=== PATIENT | male | born 1945 | race Caucasian/White ===

== ENCOUNTER 2022-01-02 02:36 | Inpatient (IN) | payer MEDICARE ==
[2022-01-02 03:00] LABS: Basophils % (A) 0 %; Eosinophils # (A) 0.1 k/uL (0-0.7); Eosinophils % (A) 1 %; HCT 33.1 % (39.0-53.0); HGB 11.9 gm/dL (13.0-17.5); Lymphocytes # (A) 0.6 k/uL (1.0-4.8); Lymphocytes % (A) 8 %; MCH 31.4 pg (25.0-35.0); MCHC 35.9 g/dL (31.0-37.0); MCV 87.3 fL (80.0-100.0); Mean Platelet Volume 7.1; Monocytes # (A) 0.4 k/uL (0-1.0); Monocytes % (A) 5 %; Neutrophils # (A) 5.6 k/uL (1.3-7.7); Neutrophils % (A) 83 %; Platelet Count 184 k/uL (150-450); RBC 3.79 m/uL (4.30-5.90); WBC 6.7 k/uL (3.8-10.6)
[2022-01-02] MEDS: SODIUM CHLORIDE 0.9% 1,000 ML IV SCH ×3 (03:01→18:45)
[2022-01-02 03:11] LABS: ALT 23 U/L (4-49); AST 37 U/L (17-59); African American GFR (CKD) >90 (>60 ml/min/1.73 sqM); Albumin 2.9 g/dL (3.5-5.0); Alkaline Phosphatase 104 U/L (38-126); Anion Gap 9 mmol/L; Blood Urea Nitrogen 6 mg/dL (9-20); Calcium 7.3 mg/dL (8.4-10.2); Carbon Dioxide 20 mmol/L (22-30); Chloride 78 mmol/L (98-107); Glucose 82 mg/dL (74-99); Non-African American GFR(CKD) >90 (>60 ml/min/1.73 sqM); Potassium 4.2 mmol/L (3.5-5.1); Total Bilirubin 0.5 mg/dL (0.2-1.3); Total Protein 5.4 g/dL (6.3-8.2)
[2022-01-02 03:17] LABS: Sodium 107 mmol/L (137-145)
[2022-01-02] MEDS ORDERED: NALOXONE 0.4 MG/ML 1 ML VIAL IV PRN (03:58)
--- NOTE | 2022-01-02 04:05 | ED ---
General Adult HPI - General Chief complaint: Recheck/Abnormal Lab/Rx Stated complaint: Abnormal Labs Time Seen by Provider: 01/02/22 02:38 Source: patient, EMS, RN notes reviewed, old records reviewed Mode of arrival: EMS - History of Present Illness Initial comments: 76-year-old male who had presented as a transfer from outside hospital. Patient was noted to be hyponatremic. 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 No seizure activity. No confusion. Patient was found to have a sodium of 106. He received 3% saline and had repeat sodium which was unchanged. He was sent to our hospital for higher level of care. No pain complaints. Additionally the patient had received a chest x-ray which was concerning for infiltrate and he received ceftriaxone and azithromycin. - Related Data Allergies Allergy/AdvReac Type Severity Reaction Status Date / Time No Known Allergies Allergy Verified 01/02/22 02:55 Review of Systems ROS Statement: Those systems with pertinent positive or pertinent negative responses have been documented in the HPI. ROS Other: All systems not noted in ROS Statement are negative. Past Medical History Past Medical History: Rheumatoid Arthritis (RA) History of Any Multi-Drug Resistant Organisms: None Reported Past Surgical History: No Surgical Hx Reported Past Psychological History: No Psychological Hx Reported Smoking Status: Never smoker Past Alcohol Use History: None Reported Past Drug Use History: None Reported General Exam General appearance: alert, in no apparent distress Head exam: Present: atraumatic, normocephalic Eye exam: Present: normal appearance, PERRL ENT exam: Present: normal exam Neck exam: Present: normal inspection. Absent: tenderness, meningismus Respiratory exam: Present: normal lung sounds bilaterally. Absent: respiratory distress, wheezes Cardiovascular Exam: Present: regular rate, normal rhythm GI/Abdominal exam: Present: soft. Absent: distended, tenderness, guarding Extremities exam: Present: normal inspection, normal capillary refill Neurological exam: Present: alert, oriented X3, CN II-XII intact. Absent: motor sensory deficit Psychiatric exam: Present: normal affect, normal mood Skin exam: Present: warm, dry, intact Course Vital Signs 01/02/22 01/02/22 02:48 04:05 Temperature 98.6 F Pulse Rate 83 85 Respiratory 18 18 Rate Blood Pressure 127/65 129/57 O2 Sat by Pulse 100 99 Oximetry EKG Findings - EKG Comments: EKG Findings:: EKG: Sinus rhythm, rate of 79, TX interval 175, QRS duration 87, QTC 395, no ST segment elevation, I reviewed and interpreted this EKG. Medical Decision Making - Medical Decision Making 76-year-old male with hyponatremia, repeat is 107. Patient continued on normal saline at 100 mL an hour. Additionally started on 3% at the recommendation of the pulmonary school speech therapist Dr. Perez. He will be admitted to the ICU, admitted to Dr. Jain who is aware. Nephrology placed on consult. - Lab Data Result diagrams: 01/02/22 02:54 01/02/22 02:54 Lab Results 01/02/22 01/02/22 Range/Units 02:54 02:54 WBC 6.7 (3.8-10.6) k/uL RBC 3.79 L (4.30-5.90) m/uL Hgb 11.9 L (13.0-17.5) gm/dL Hct 33.1 L (39.0-53.0) % MCV 87.3 (80.0-100.0) fL MCH 31.4 (25.0-35.0) pg MCHC 35.9 (31.0-37.0) g/dL RDW 13.0 (11.5-15.5) % Plt Count 184 (150-450) k/uL MPV 7.1 Neutrophils % 83 % Lymphocytes % 8 % Monocytes % 5 % Eosinophils % 1 % Basophils % 0 % Neutrophils # 5.6 (1.3-7.7) k/uL Lymphocytes # 0.6 L (1.0-4.8) k/uL Monocytes # 0.4 (0-1.0) k/uL Eosinophils # 0.1 (0-0.7) k/uL Basophils # 0.0 (0-0.2) k/uL Sodium 107 L* (137-145) mmol/L Potassium 4.2 (3.5-5.1) mmol/L Chloride 78 L (98-107) mmol/L Carbon Dioxide 20 L (22-30) mmol/L Anion Gap 9 mmol/L BUN 6 L (9-20) mg/dL Creatinine 0.36 L (0.66-1.25) mg/dL Est GFR (CKD-EPI)AfAm >90 (>60 ml/min/1.73 sqM) Est GFR (CKD-EPI)NonAf >90 (>60 ml/min/1.73 sqM) Glucose 82 (74-99) mg/dL Osmolality 222 L* (280-301) mosm/kg Calcium 7.3 L (8.4-10.2) mg/dL Total Bilirubin 0.5 (0.2-1.3) mg/dL AST 37 (17-59) U/L ALT 23 (4-49) U/L Alkaline Phosphatase 104 (38-126) U/L Total Protein 5.4 L (6.3-8.2) g/dL Albumin 2.9 L (3.5-5.0) g/dL TSH 1.280 (0.465-4.680) mIU/L Critical Care Time Critical Care Time: Yes Total Critical Care Time: 35 Disposition Clinical Impression: Hyponatremia Disposition: ADMITTED IP TO THIS [facility] Condition: Serious Is patient prescribed a controlled substance at d/c from ED?: No Time of Disposition: 04:05
[2022-01-02 04:58] LABS: Appearance,Urine Clear (Clear); Bilirubin,Urine Negative (Negative); Blood,Urine Negative (Negative); Color,Urine Light Yellow; Glucose,Urine (UA) Negative (Negative); Ketones,Urine 2+ (Negative); Leukocyte Esterase,Urine Negative (Negative); Nitrite,Urine Negative (Negative); Protein,Urine Negative (Negative); Specific Gravity,Urine 1.013 (1.001-1.035); Urobilinogen,Urine <2.0 mg/dL (<2.0)
[2022-01-02] MEDS ORDERED: SODIUM CHLORIDE 3%(HYPERTONIC) 500 ML IV SCH (05:30)
[2022-01-02 05:58] LABS: Glucose,Whole Blood 88 mg/dL (70-110)
[2022-01-02] MEDS: NICOTINE 21MG/24HR PATCH TRANSDERM SCH (08:24)
--- NOTE | 2022-01-02 09:56 | XR ---
EXAMINATION TYPE: XR chest 1V portable DATE OF EXAM: 01/02/2022 COMPARISON: 01/01/2022 HISTORY: Cough TECHNIQUE: Single frontal view of the chest is obtained. FINDINGS: Large consolidation right upper lobe stable. Underlying COPD and chronic pulmonary fibrosi s suspected. Heart size normal. No pleural effusion or pneumothorax. No overt failure. There appears to be feeding subsegmental peripheral infiltrate left upper lobe. Arthropathy of the shoulders. IMPRESSION: 1. Stable dense consolidation right upper lobe correlate for pneumonia. 2. Vague peripheral infiltrate left upper lobe new from prior exam. 3. Correlate for COPD and chronic pulmonary fibrosis.
--- NOTE | 2022-01-02 11:12 | P.NPCON ---
History of Present Illness - Reason for Consult hyponatremia - History of Present Illness Patient is a 76 year-old male who has a history of rheumatoid arthritis. He is admitted to the hospital with complaints of increased weakness. According to the family patient has not been eating or drinking much for the past 4-5 weeks. He has had nausea and vomiting on and off. No complaints of diarrhea No new medications started recently Patient is not maintained on any diuretics. Serum sodium was noted to be 107. Patient has been started on 3% saline. Repeat sodium 4 hours later was 107 and the 3% saline has been increased. Chest x-ray shows possible right lung mass. Urine osmolality 414, urine sodium at 62 Review of Systems As per HPI. Other systems negative Past Medical History Past Medical History: Rheumatoid Arthritis (RA) History of Any Multi-Drug Resistant Organisms: None Reported Past Surgical History: No Surgical Hx Reported Past Psychological History: No Psychological Hx Reported Smoking Status: Never smoker Past Alcohol Use History: None Reported Past Drug Use History: None Reported - Past Family History Mother Family Medical History: Unable to Obtain Father Family Medical History: Unable to Obtain Medications and Allergies Allergies Allergy/AdvReac Type Severity Reaction Status Date / Time No Known Allergies Allergy Verified 01/02/22 02:55 Physical Exam Vitals: Vital Signs Temp Pulse Pulse Resp BP BP Pulse Ox 01/02/22 09:00 68 23 101/64 97 01/02/22 08:00 98.4 F 70 68 14 118/82 96 01/02/22 07:00 71 18 102/61 96 01/02/22 06:30 73 15 95 01/02/22 06:00 98.8 F 75 16 118/60 96 01/02/22 05:48 20 01/02/22 04:26 98.0 F 76 16 118/60 95 01/02/22 04:05 85 18 129/57 99 01/02/22 02:48 98.6 F 83 18 127/65 100 Intake and Output 01/01/22 01/02/22 01/02/22 22:59 06:59 14:59 Intake Total 60 Output Total 100 200 Balance -100 -140 Intake: IV 60 Sodium Chloride 3%( 60 Hypertonic) 500 ml @ 30 mls/hr IV .[id number] [facility] Rx #:[id number] Output: Urine 100 200 Other: Weight 90.718 kg Patient is awake, comfortable, not in any acute distress Examination of the heart S1 and S2 Examination of the lungs bilateral breath sounds are heard Abdomen is soft nontender Examination of the lower extremities shows no evidence of edema 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 Results - Lab Results Most recent lab results Calcium 7.3 mg/dL (8.4-10.2) L 01/02/22 02:54 01/02/22 02:54 01/02/22 06:28 Assessment and Plan Assessment: 1. Hyponatremia secondary to decreased oral intake versus underlying SIADH. Blood pressure is currently on the lower side and patient is maintained on 3% saline. Urine osmolality is elevated at 414 and random urine sodium is low.. Continue with the 3% saline for now. Repeat sodium in 4 hours. 2. Rheumatoid arthritis maintained on azathioprine per family. 3. Right lung infiltrate versus mass on chest x-ray Plan: Continue with 3% saline and repeat sodium in 4 hours Check TSH level Check random cortisol level Consider computed tomography scan of the chest. Next Thank you for the consultation. We'll continue to follow the patient with you during his hospitalization.
[2022-01-02] MEDS ORDERED: RX INFO: IV CONTRAST WAS GIVEN 1 EACH MISC MISCELLANE PRN (11:41)
--- NOTE | 2022-01-02 11:41 | P.CNPUL ---
History of Present Illness Consult date: 01/02/22 Requesting physician: Harrison Jain Reason for consult: dyspnea, cough, abnormal CXR/CT, other Chief complaint: Hyponatremia. History of present illness: Pulmonary consult dated 01/02/2022. 76-year-old male transferred from an outside hospital. The patient was found to be profoundly hyponatremic. Here, his sodium was 107. According to family members, he's not been doing well for weeks or so. His been having dehydration, secondary to nausea and vomiting. More recently, he's had loss of balance, confusion, and dizziness. The patient does have a history of rheumatoid arthritis, and chronic heavy tobacco use. The patient is currently on room air. The patient's getting 3% saline at 40 mL an hour. He has been seen by nephrology. Currently labs include a sodium 107, potassium 4.2, CVA, CO2 20, anion gap 9, BUN 6, creatinine 0.36. The patient's osmolarity is 222. TSH is normal. Glucose 88. White count is 6.7, hemoglobin 11.9, and platelet count 184,000. Chest x-ray shows a right upper lobe infiltrate. The patient is not really having any signs or symptoms of pneumonia. There is no fever, cough, phlegm production, or shortness of breath. Review of Systems REVIEW OF SYSTEMS: CONSTITUTIONAL: Confusion. NEUROLOGIC: Dizziness, loss of balance. HEENT: [ Negative.] CARDIAC: [Negative.] PULMONARY: [Negative.] GI: [Negative.] : [Negative.] RHEUMATOLOGIC: [ Negative.] IMMUNOLOGIC: [ Negative.] ENDOCRINE: [Negative. ] DERMATOLOGIC: [Negative.] Past Medical History Past Medical History: Rheumatoid Arthritis (RA) History of Any Multi-Drug Resistant Organisms: None Reported Past Surgical History: No Surgical Hx Reported Past Psychological History: No Psychological Hx Reported Smoking Status: Never smoker Past Alcohol Use History: None Reported Past Drug Use History: None Reported - Past Family History Mother Family Medical History: Unable to Obtain Father Family Medical History: Unable to Obtain Medications and Allergies Allergies Allergy/AdvReac Type Severity Reaction Status Date / Time No Known Allergies Allergy Verified 01/02/22 02:55 Physical Exam Osteopathic Statement: *. No significant issues noted on an osteopathic structural exam other than those noted in the History and Physical/Consult. Vitals: Vital Signs Temp Pulse Pulse Resp BP BP Pulse Ox 01/02/22 09:00 68 23 101/64 97 01/02/22 08:00 98.4 F 70 68 14 118/82 96 01/02/22 07:00 71 18 102/61 96 01/02/22 06:30 73 15 95 01/02/22 06:00 98.8 F 75 16 118/60 96 01/02/22 05:48 20 01/02/22 04:26 98.0 F 76 16 118/60 95 01/02/22 04:05 85 18 129/57 99 01/02/22 02:48 98.6 F 83 18 127/65 100 Intake and Output 01/01/22 01/02/22 01/02/22 22:59 06:59 14:59 Intake Total 60 Output Total 100 200 Balance -100 -140 Intake: IV 60 Sodium Chloride 3%( 60 Hypertonic) 500 ml @ 30 mls/hr IV .[id number] [facility] Rx #:[id number] Output: Urine 100 200 Other: Weight 90.718 kg No acute distress, oriented 3. No respiratory distress. Room air saturation 97%. HEENT examination is grossly unremarkable. Neck supple. Full range of motion. No adenopathy thyromegaly or neck vein distention. Cardiovascular examination reveals regular rhythm rate. S1-S2 normal. No S3 or S4. No discernible murmur noted. Heart rate 68 bpm. Lungs reveal clear breath sounds. Breath sounds are equal bilaterally. No adventitious lung sounds including wheezes rhonchi or crackles. Abdomen soft bowel sounds are heard. No masses or tenderness. Extremities are intact. No cyanosis clubbing or edema. Skin is without rash or lesion. Neurologic examination is brief but nonfocal. Results - Laboratory Findings CBC and BMP: 01/02/22 02:54 01/02/22 06:28 Abnormal lab findings: Abnormal Labs 01/02/22 01/02/22 01/02/22 02:54 02:54 04:30 RBC 3.79 L Hgb 11.9 L Hct 33.1 L Lymphocytes # 0.6 L Sodium 107 L* Chloride 78 L Carbon Dioxide 20 L BUN 6 L Creatinine 0.36 L Osmolality 222 L* Calcium 7.3 L Total Protein 5.4 L Albumin 2.9 L Urine Ketones 2+ H 01/02/22 06:28 RBC Hgb Hct Lymphocytes # Sodium 107 L* Chloride Carbon Dioxide BUN Creatinine Osmolality Calcium Total Protein Albumin Urine Ketones - Diagnostic Findings Chest x-ray: image reviewed Assessment and Plan Assessment: Severe hyponatremia, with dizziness, confusion, and loss of balance. Recent chronic nausea and vomiting. Rule out SIADH. History of rheumatoid arthritis. Possible pneumonia/mass, right upper lobe. History of ongoing tobacco use with nicotine addiction. Plan: Plan dated 01/02/2022. We will check a pro-calcitonin level. The patient will probably benefit from a computed tomography scan of the chest with contrast. Nephrology has seen the patient because of his hyponatremia. The patient remains on 3% saline. The goal is to raise the sodium no more than 8 mEq per liter in the first 24 hours. Additional recommendations and suggestions are forthcoming. Time with Patient: Greater than 30
[2022-01-02] MEDS: LEFLUNOMIDE 20 MG TAB PO SCH (12:19)
[2022-01-02] MEDS: ENOXAPARIN 40 MG/0.4 ML SYRINGE SQ SCH (12:19)
[2022-01-02 13:29] LABS: Sodium 109 mmol/L (137-145)
--- NOTE | 2022-01-02 13:56 | CT ---
EXAMINATION TYPE: CT chest w con DATE OF EXAM: 01/02/2022 COMPARISON: None HISTORY: lung mass CT DLP: 335.2 mGycm, Automated exposure control for dose reduction was used. CONTRAST: Performed injected with 100 mL of Isovue 300. TECHNIQUE: Axial images were obtained at 5 mm thick sections. Reconstructed images are reviewed on HeadCount computer in the coronal plane. FINDINGS: Portion of the thyroid visualized is normal. There is a soft tissue density within the posterior medial right upper lung field measuring 3.2 x 3.8 cm. Series 201 image 22. A pleural-based nodules in the posterior lateral right upper lung field aurelio suring 2.1 x 1.3 cm. Series 201 image 29. Same level and additional lateral right lung nodules presen t measuring 2.0 x 1.4 cm. Minimal bilateral pleural effusions are present. There appears to be some compressive atelectasis adj acent. Some pulmonary fibrosis may be within the periphery of the right mid to lower lung field. No enlarged mediastinal or hilar adenopathy is evident. The ascending aorta diameter at the level o f the main pulmonary artery is 3.7 cm. The main pulmonary artery diameter at the bifurcation is 3.1 cm. Coronary artery calcification is present. Limited CT sections are obtained through the upper abdomen. Mild diffuse fatty infiltration of liver is present. IMPRESSIONS: 1. Scattered irregular masslike densities within the periphery right lung. PET/CT recommended for add itional workup for neoplasm. 2. Minimal bilateral pleural effusions with adjacent compressive atelectasis. 3. Some changes suggestive for some pulmonary fibrosis present bilaterally.
[2022-01-02] MEDS: IPRATROPIUM-ALBUTEROL 3 ML NEB INHALATION SCH ×3 (15:15→21:35)
--- NOTE | 2022-01-02 16:29 | P.HPIM ---
History of Present Illness H&P Date: 01/02/22 Chief Complaint: Low-sodium This is a 76-year-old patient who is a long-standing smoker. Patient was sent from [facility] as sodium was found to be very low. 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 Sodium was 106. He was started on hypertonic saline given at the outside hospital and then subsequently transferred here. Patient has noticed that he's been dizzy and lightheaded. Has been having 1 week of nausea vomiting. Has been a bit off balance. Denies any fever and chills. Has a chronic cough. Little sputum if any. Patient started hypertonic saline and admitted to ICU. Review of systems: GEN.: Weak diet decreased appetite EYES: None HEENT: None NECK: None RESPIRATORY: Short of breath wheezing CARDIOVASCULAR: None GASTROINTESTINAL: None GENITOURINARY: None MUSCULOSKELETAL: Joint pains LYMPHATICS: None HEMATOLOGICAL: None PSYCHIATRY: None NEUROLOGICAL: Dizzy, no trouble with speech or focal weakness Past medical history to include: Rheumatoid arthritis Social history: . Smokes about a pack and a half a day for close to 60's. No alcohol. Retired from [employer]. Physical examination: VITAL SIGNS: 98.6, 83, 18, 127/65, temperature percent room air GENERAL: BMI 31.3, declining but awake. EYES: Pupils equal. Conjunctiva normal. HEENT: External appearance of nose and ears normal, oral cavity grossly normal. NECK: JVD not raised; masses not palpable. HEART: First and second heart sounds are normal; no edema. LUNGS: Respiratory rate increased; decreased breath sounds, wheezing. ABDOMEN: Soft, nontender, liver spleen not palpable, no masses palpable. PSYCH: Alert and oriented x3; mood and affect normal. MUSCULOSKELETAL:No Clubbing/cyanosis;muscles-grossly intact, evidence of arthritis NEUROLOGICAL: Cranial nerves grossly intact; no facial asymmetry, power and sensation grossly intact. LYMPHATICS: No lymph nodes palpable in the axilla and neck INVESTIGATIONS, reviewed in the clinical context: White count 6.7 hemoglobin 11.9 platelets 184 sodium once was 7 potassium 4.2 bicarbonate 20 creatinine 0.36 serum osmolality 222 albumin 2.9 UA ketones 2+ EKG tracing personally reviewed by me-normal sinus rhythm. Chest x-ray film personally reviewed by me-consolidation right upper lobe. Hyperinflation. Assessment and plan: -Severe hypoosmolar hyponatremia. Likely SIADH, rule out underlying pulmonary malignancy smoker. Patient received hypertonic saline. Followed by saline. Fluid restriction 1500 mL daily. Avoid free fluid. -COPD in a current smoker Guerita Pulmicort -Chronic rheumatoid arthritis Imuran, Arava, -Normocytic anemia Check iron studies Patient received hypertonic saline. Followed by normal saline. Place on free fluid restriction. Total fluid restriction of 15 00 mL a day. Suspicion for underlying lung malignancy. Computed tomography scan of the chest. DuoNeb. Pulmicort. Nicotine patch. Consultation to pulmonary and nephrology. Past Medical History Past Medical History: Rheumatoid Arthritis (RA) History of Any Multi-Drug Resistant Organisms: None Reported Past Surgical History: No Surgical Hx Reported Past Psychological History: No Psychological Hx Reported Smoking Status: Never smoker Past Alcohol Use History: None Reported Past Drug Use History: None Reported - Past Family History Mother Family Medical History: Unable to Obtain Father Family Medical History: Unable to Obtain Medications and Allergies Home Medications Medication Instructions Recorded Confirmed Type Ibuprofen [Motrin Ib] 200 mg PO Q6H PRN 01/02/22 01/02/22 History Leflunomide [Arava] 20 mg PO DAILY 01/02/22 01/02/22 History azaTHIOprine [Imuran] 50 mg PO DAILY 01/02/22 01/02/22 History Allergies Allergy/AdvReac Type Severity Reaction Status Date / Time No Known Allergies Allergy Verified 01/02/22 12:46 Physical Exam Vitals: Vital Signs Temp Pulse Pulse Resp BP BP Pulse Ox 01/02/22 09:00 68 23 101/64 97 01/02/22 08:00 98.4 F 70 68 14 118/82 96 01/02/22 07:00 71 18 102/61 96 01/02/22 06:30 73 15 95 01/02/22 06:00 98.8 F 75 16 118/60 96 01/02/22 05:48 20 01/02/22 04:26 98.0 F 76 16 118/60 95 01/02/22 04:05 85 18 129/57 99 01/02/22 02:48 98.6 F 83 18 127/65 100 Intake and Output 01/01/22 01/02/22 01/02/22 22:59 06:59 14:59 Intake Total 60 Output Total 100 200 Balance -100 -140 Intake: IV 60 Sodium Chloride 3%( 60 Hypertonic) 500 ml @ 30 mls/hr IV .[id number] [facility] Rx #:[id number] Output: Urine 100 200 Other: Weight 90.718 kg Results CBC & Chem 7: 01/02/22 02:54 01/02/22 12:57 Labs: Abnormal Lab Results - Last 24 Hours (Table) 01/02/22 01/02/22 01/02/22 Range/Units 02:54 02:54 04:30 RBC 3.79 L (4.30-5.90) m/uL Hgb 11.9 L (13.0-17.5) gm/dL Hct 33.1 L (39.0-53.0) % Lymphocytes # 0.6 L (1.0-4.8) k/uL Sodium 107 L* (137-145) mmol/L Chloride 78 L (98-107) mmol/L Carbon Dioxide 20 L (22-30) mmol/L BUN 6 L (9-20) mg/dL Creatinine 0.36 L (0.66-1.25) mg/dL Osmolality 222 L* (280-301) mosm/kg Calcium 7.3 L (8.4-10.2) mg/dL Total Protein 5.4 L (6.3-8.2) g/dL Albumin 2.9 L (3.5-5.0) g/dL Urine Ketones 2+ H (Negative) 01/02/22 Range/Units 06:28 RBC (4.30-5.90) m/uL Hgb (13.0-17.5) gm/dL Hct (39.0-53.0) % Lymphocytes # (1.0-4.8) k/uL Sodium 107 L* (137-145) mmol/L Chloride (98-107) mmol/L Carbon Dioxide (22-30) mmol/L BUN (9-20) mg/dL Creatinine (0.66-1.25) mg/dL Osmolality (280-301) mosm/kg Calcium (8.4-10.2) mg/dL Total Protein (6.3-8.2) g/dL Albumin (3.5-5.0) g/dL Urine Ketones (Negative) Thrombosis Risk Factor Assmnt - Choose All That Apply Any of the Below Risk Factors Present?: No Other Risk Factors: No Other congenital or acquired thrombophilia - If yes, enter type in comment: No Thrombosis Risk Factor Assessment Level: Very Low Risk
[2022-01-02 17:58] LABS: Calcium 7.2 mg/dL (8.4-10.2); Magnesium 1.7 mg/dL (1.6-2.3)
[2022-01-02] MEDS ORDERED: MAGNESIUM SULFATE-D5W PMX 1 GM in DEXTROSE/WATER 1 100ML.BAG IVPB ONE (18:12)
[2022-01-02] MEDS: SODIUM CHLORIDE 3%(HYPERTONIC) 500 ML IV SCH (18:45)
[2022-01-02] MEDS: BUDESONIDE 1 MG/2 ML NEBU INHALATION SCH (21:35)
[2022-01-03] MEDS: SODIUM CHLORIDE 3%(HYPERTONIC) 500 ML IV SCH (00:41)
[2022-01-03] MEDS: ACETAMINOPHEN TAB 325 MG TAB PO PRN ×2 (01:07→20:14)
[2022-01-03 02:57] LABS: African American GFR (CKD) >90 (>60 ml/min/1.73 sqM); Anion Gap 7 mmol/L; Blood Urea Nitrogen 4 mg/dL (9-20); Calcium 7.1 mg/dL (8.4-10.2); Carbon Dioxide 21 mmol/L (22-30); Chloride 86 mmol/L (98-107); Glucose 91 mg/dL (74-99); Non-African American GFR(CKD) >90 (>60 ml/min/1.73 sqM); Potassium 3.8 mmol/L (3.5-5.1)
[2022-01-03 03:06] LABS: Sodium 114 mmol/L (137-145)
[2022-01-03] MEDS ORDERED: Potassium Replacement Protocol 1 EACH MISC MISCELLANE PRN (04:58)
[2022-01-03] MEDS: POTASSIUM CHLORIDE 10 MEQ in WATER FOR INJECTION 1 100ML.BAG IVPB SCH ×2 (05:36→06:40)
[2022-01-03 07:15] LABS: HCT 33.6 % (39.0-53.0); HGB 11.5 gm/dL (13.0-17.5); MCH 30.3 pg (25.0-35.0); MCHC 34.2 g/dL (31.0-37.0); MCV 88.5 fL (80.0-100.0); Mean Platelet Volume 7.4; Platelet Count 195 k/uL (150-450); RDW 13.5 % (11.5-15.5); WBC 5.5 k/uL (3.8-10.6)
[2022-01-03 07:24] LABS: African American GFR (CKD) >90 (>60 ml/min/1.73 sqM); Anion Gap 6 mmol/L; Blood Urea Nitrogen 2 mg/dL (9-20); Calcium 7.3 mg/dL (8.4-10.2); Carbon Dioxide 22 mmol/L (22-30); Chloride 87 mmol/L (98-107); Glucose 82 mg/dL (74-99); Magnesium 1.9 mg/dL (1.6-2.3); Non-African American GFR(CKD) >90 (>60 ml/min/1.73 sqM); Potassium 4.1 mmol/L (3.5-5.1)
[2022-01-03 07:30] LABS: Sodium 115 mmol/L (137-145)
[2022-01-03] MEDS: ENOXAPARIN 40 MG/0.4 ML SYRINGE SQ SCH (08:47)
[2022-01-03] MEDS: NICOTINE 21MG/24HR PATCH TRANSDERM SCH (08:48)
[2022-01-03] MEDS: LEFLUNOMIDE 20 MG TAB PO SCH (08:49)
[2022-01-03] MEDS: SODIUM CHLORIDE 0.9% 1,000 ML IV SCH (08:50)
[2022-01-03] MEDS ORDERED: SODIUM CHLORIDE TAB 1 GM TAB PO STA ×2 (09:17→14:46)
[2022-01-03] MEDS: IPRATROPIUM-ALBUTEROL 3 ML NEB INHALATION SCH ×4 (09:27→21:07)
[2022-01-03] MEDS: BUDESONIDE 1 MG/2 ML NEBU INHALATION SCH ×2 (09:27→21:07)
[2022-01-03 09:31] LABS: % Iron Saturation 12.29 (15.00-50.00); Iron 26 ug/dL (65-175); Total Iron Binding Capacity 210 ug/dL (228-460)
[2022-01-03] MEDS: azaTHIOprine 50 MG TAB PO SCH (09:58)
[2022-01-03 10:46] LABS: Amylase 54 U/L (30-110); Lipase 54 U/L (23-300)
[2022-01-03 10:50] LABS: Sodium 114 mmol/L (137-145)
--- NOTE | 2022-01-03 10:51 | P.PN ---
Subjective Patient is seen for follow-up for hyponatremia. Patient was maintained on 3% saline which was discontinued yesterday when serum sodium had come up to 115. It was 107 on initial admission. Urine osmolality at 414 and random urine sodium was 62. Blood pressure has been on the lower side. Objective - Vital Signs Vital signs: Vital Signs Temp 97.9 F 01/03/22 08:00 Pulse 71 01/03/22 10:00 Resp 12 01/03/22 10:00 BP 105/71 01/03/22 10:00 Pulse Ox 97 01/03/22 10:00 FiO2 96 01/02/22 16:00 Intake & Output 01/02/22 01/03/22 01/03/22 18:59 06:59 18:59 Intake Total 720 430 30 Output Total 900 1250 400 Balance -180 -820 -370 Weight 77 kg Intake: IV 470 200 30 0.9 NACL 30 Sodium Chloride 3%( 470 200 Hypertonic) 500 ml @ 40 mls/hr IV .[id number] [facility] Rx #:[id number] Intake, IV Titration 50 230 Amount Magnesium Sulfate-D5w Pmx 50 1 gm In Dextrose/Water 1 100ml.bag @ 100 mls/hr IVPB ONCE ONE Rx#: [id number] Potassium Chloride 10 meq 200 In Water For Injection 1 100ml.bag @ 100 mls/hr IVPB Q1H [facility] Rx#: [id number] Sodium Chloride 0.9% 1, 30 000 ml @ 100 mls/hr IV . Q10H [facility] Rx#:[id number] Oral 200 Output: Urine 900 1250 400 Other: # Voids 1 # Bowel Movements 1 - Exam Awake, comfortable, no acute distress Examination of the heart S1 and S2 Examination of the lungs bilateral breath sounds are heard Abdomen is soft nontender Examination of lower extremities shows no significant edema. - Labs CBC & Chem 7: 01/03/22 06:40 01/03/22 06:40 Labs: Abnormal Lab Results - Last 24 Hours (Table) 01/02/22 01/02/22 01/02/22 Range/Units 12:57 12:57 17:31 RBC (4.30-5.90) m/uL Hgb (13.0-17.5) gm/dL Hct (39.0-53.0) % Sodium 109 L* 112 L* (137-145) mmol/L Chloride (98-107) mmol/L Carbon Dioxide (22-30) mmol/L BUN (9-20) mg/dL Creatinine (0.66-1.25) mg/dL Osmolality (280-301) mosm/kg Calcium (8.4-10.2) mg/dL Iron (65-175) ug/dL TIBC (228-460) ug/dL % Saturation (15.00-50.00) Transferrin (204.0-354.0) mg/dL Ferritin (22.0-322.0) ng/mL Procalcitonin 0.22 H (0.02-0.09) ng/mL 01/02/22 01/02/22 01/03/22 Range/Units 17:31 21:57 02:34 RBC (4.30-5.90) m/uL Hgb (13.0-17.5) gm/dL Hct (39.0-53.0) % Sodium 114 L* 114 L* (137-145) mmol/L Chloride 86 L (98-107) mmol/L Carbon Dioxide 21 L (22-30) mmol/L BUN 4 L (9-20) mg/dL Creatinine 0.36 L (0.66-1.25) mg/dL Osmolality 243 L* (280-301) mosm/kg Calcium 7.2 L 7.1 L (8.4-10.2) mg/dL Iron 26 L (65-175) ug/dL TIBC 210 L (228-460) ug/dL % Saturation 12.29 L (15.00-50.00) Transferrin 150.0 L (204.0-354.0) mg/dL Ferritin 712.0 H (22.0-322.0) ng/mL Procalcitonin (0.02-0.09) ng/mL 01/03/22 01/03/22 Range/Units 06:40 06:40 RBC 3.80 L (4.30-5.90) m/uL Hgb 11.5 L (13.0-17.5) gm/dL Hct 33.6 L (39.0-53.0) % Sodium 115 L* (137-145) mmol/L Chloride 87 L (98-107) mmol/L Carbon Dioxide (22-30) mmol/L BUN 2 L (9-20) mg/dL Creatinine 0.37 L (0.66-1.25) mg/dL Osmolality (280-301) mosm/kg Calcium 7.3 L (8.4-10.2) mg/dL Iron (65-175) ug/dL TIBC (228-460) ug/dL % Saturation (15.00-50.00) Transferrin (204.0-354.0) mg/dL Ferritin (22.0-322.0) ng/mL Procalcitonin (0.02-0.09) ng/mL Assessment and Plan Assessment: 1. Hyponatremia secondary to decreased oral intake versus underlying SIADH. Blood pressure is currently on the lower side and patient is maintained on 3% saline. Urine osmolality is elevated at 414 and random urine sodium is low.. Continue off of 3% saline. Patient received 1 dose of sodium chloride. Will follow-up on his repeat sodium level. 2. Rheumatoid arthritis maintained on azathioprine per family. 3. Right lung infiltrate versus mass on chest x-ray Plan: Continue off of 3% saline Maintain some degree of free water restriction Repeat sodium level. Encouraged increased oral intake particularly protein Workup of possible lung mass/infiltrate
--- NOTE | 2022-01-03 11:20 | P.PN ---
Subjective Progress Note Date: 01/03/22 Principal diagnosis: Hyponatremia. Pulmonary consult dated 01/02/2022. 76-year-old male transferred from an outside hospital. The patient was found to be profoundly hyponatremic. Here, his sodium was 107. According to family members, he's not been doing well for weeks or so. His been having dehydration, secondary to nausea and vomiting. More recently, he's had loss of balance, confusion, and dizziness. The patient does have a history of rheumatoid arthritis, and chronic heavy tobacco use. The patient is currently on room air. The patient's getting 3% saline at 40 mL an hour. He has been seen by nephrology. Currently labs include a sodium 107, potassium 4.2, CVA, CO2 20, anion gap 9, BUN 6, creatinine 0.36. The patient's osmolarity is 222. TSH is normal. Glucose 88. White count is 6.7, hemoglobin 11.9, and platelet count 184,000. Chest x-ray shows a right upper lobe infiltrate. The patient is not really having any signs or symptoms of pneumonia. There is no fever, cough, phlegm production, or shortness of breath. Progress note dated 01/03/2022. 76-year-old male transferred from an outside hospital with hyponatremia. Chest x-ray suggested a infiltrate in the right upper lobe. I was concerned about SIADH. A CAT scan was ordered. Clinically, the patient stable. The patient's sodium is up to 115. It was previously 107. He's on room air. He is getting saline at 10 mL an hour. White count 5.5, hemoglobin 11.5, hematocrit 43.6, and platelet count 295,000. Sodium 115, potassium 4.1, chloride 87, CO2 22, BUN 2, creatinine 0.37. Computed tomography scan of the chest showed a soft tissue density within the posterior medial right upper lung field measuring 3.2 x 3.8 cm. A pleural-based nodule in the posterior lateral right upper lobe lung field measuring 2.1 x 1.3 cm, and lateral right lung nodules, at the same level, measuring 2 x 1.4 cm. Pleural effusions are small. There is no hilar or mediastinal adenopathy. Outpatient PET scan will need to be ordered. Objective - Vital Signs Vital signs: Vital Signs Temp 97.9 F 01/03/22 08:00 Pulse 71 11/04/22 10:00 Resp 12 01/03/22 10:00 BP 105/71 01/03/22 10:00 Pulse Ox 97 01/03/22 10:00 FiO2 96 01/02/22 16:00 Intake & Output 01/02/22 01/03/22 01/03/22 18:59 06:59 18:59 Intake Total 720 430 30 Output Total 900 1250 400 Balance -180 -820 -370 Weight 77 kg Intake: IV 470 200 30 0.9 NACL 30 Sodium Chloride 3%( 470 200 Hypertonic) 500 ml @ 40 mls/hr IV .[id number] [facility] Rx #:[id number] Intake, IV Titration 50 230 Amount Magnesium Sulfate-D5w Pmx 50 1 gm In Dextrose/Water 1 100ml.bag @ 100 mls/hr IVPB ONCE ONE Rx#: [id number] Potassium Chloride 10 meq 200 In Water For Injection 1 100ml.bag @ 100 mls/hr IVPB Q1H [facility] Rx#: [id number] Sodium Chloride 0.9% 1, 30 000 ml @ 100 mls/hr IV . Q10H [facility] Rx#:[id number] Oral 200 Output: Urine 900 1250 400 Other: # Voids 1 # Bowel Movements 1 - Exam No acute distress, oriented 3. No respiratory distress. Room air saturation 98%. HEENT examination is grossly unremarkable. Neck supple. Full range of motion. No adenopathy thyromegaly or neck vein distention. Cardiovascular examination reveals regular rhythm rate. S1-S2 normal. No S3 or S4. No discernible murmur noted. Heart rate 77 bpm. Lungs reveal clear breath sounds. Breath sounds are equal bilaterally. No adventitious lung sounds including wheezes rhonchi or crackles. Abdomen soft bowel sounds are heard. No masses or tenderness. Extremities are intact. No cyanosis clubbing or edema. Skin is without rash or lesion. Neurologic examination is brief but nonfocal. - Labs CBC & Chem 7: 01/03/22 06:40 01/03/22 10:16 Labs: Abnormal Lab Results - Last 24 Hours (Table) 01/02/22 01/02/22 01/02/22 Range/Units 12:57 12:57 17:31 RBC (4.30-5.90) m/uL Hgb (13.0-17.5) gm/dL Hct (39.0-53.0) % Sodium 109 L* 112 L* (137-145) mmol/L Chloride (98-107) mmol/L Carbon Dioxide (22-30) mmol/L BUN (9-20) mg/dL Creatinine (0.66-1.25) mg/dL Osmolality (280-301) mosm/kg Calcium (8.4-10.2) mg/dL Iron (65-175) ug/dL TIBC (228-460) ug/dL % Saturation (15.00-50.00) Transferrin (204.0-354.0) mg/dL Ferritin (22.0-322.0) ng/mL Procalcitonin 0.22 H (0.02-0.09) ng/mL 01/02/22 01/02/22 01/03/22 Range/Units 17:31 21:57 02:34 RBC (4.30-5.90) m/uL Hgb (13.0-17.5) gm/dL Hct (39.0-53.0) % Sodium 114 L* 114 L* (137-145) mmol/L Chloride 86 L (98-107) mmol/L Carbon Dioxide 21 L (22-30) mmol/L BUN 4 L (9-20) mg/dL Creatinine 0.36 L (0.66-1.25) mg/dL Osmolality 243 L* (280-301) mosm/kg Calcium 7.2 L 7.1 L (8.4-10.2) mg/dL Iron 26 L (65-175) ug/dL TIBC 210 L (228-460) ug/dL % Saturation 12.29 L (15.00-50.00) Transferrin 150.0 L (204.0-354.0) mg/dL Ferritin 712.0 H (22.0-322.0) ng/mL Procalcitonin (0.02-0.09) ng/mL 01/03/22 01/03/22 01/03/22 Range/Units 06:40 06:40 10:16 RBC 3.80 L (4.30-5.90) m/uL Hgb 11.5 L (13.0-17.5) gm/dL Hct 33.6 L (39.0-53.0) % Sodium 115 L* 114 L* (137-145) mmol/L Chloride 87 L (98-107) mmol/L Carbon Dioxide (22-30) mmol/L BUN 2 L (9-20) mg/dL Creatinine 0.37 L (0.66-1.25) mg/dL Osmolality (280-301) mosm/kg Calcium 7.3 L (8.4-10.2) mg/dL Iron (65-175) ug/dL TIBC (228-460) ug/dL % Saturation (15.00-50.00) Transferrin (204.0-354.0) mg/dL Ferritin (22.0-322.0) ng/mL Procalcitonin (0.02-0.09) ng/mL Assessment and Plan Assessment: Severe hyponatremia, with dizziness, confusion, and loss of balance. Multiple abnormalities right lung, potentially consistent with lung cancer, which would explain the hyponatremia. Recent chronic nausea and vomiting. Rule out SIADH. History of rheumatoid arthritis. Possible pneumonia/mass, right upper lobe. History of ongoing tobacco use with nicotine addiction. Plan: Plan dated 01/02/2022. We will check a pro-calcitonin level. The patient will probably benefit from a computed tomography scan of the chest with contrast. Nephrology has seen the patient because of his hyponatremia. The patient remains on 3% saline. The goal is to raise the sodium no more than 8 mEq per liter in the first 24 hours. Additional recommendations and suggestions are forthcoming. Plan dated 01/03/2022. The patient is again seen in room 265. Labs, x-rays, and medications are reviewed. The patient may in fact have lung cancer. The hyponatremia may be secondary to SIADH. I told the patient's , that he will need an outpatient PET scan. He likely will benefit from a biopsy. More importantly, he has to get over this acute episode of hyponatremia. Nephrology is on the case. 3% saline was discontinued by them. Time with Patient: Less than 30
[2022-01-03] MEDS ORDERED: SODIUM CHLORIDE 0.9% 1,000 ML IV SCH (14:45)
--- NOTE | 2022-01-03 18:08 | P.PN ---
Progress Note - Text Progress Note Date: 01/03/22 Chief Complaint: Low-sodium This is a 76-year-old patient who is a long-standing smoker. Patient was sent from [facility] as sodium was found to be very low. 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 Sodium was 106. He was started on hypertonic saline given at the outside hospital and then subsequently transferred here. Patient has noticed that he's been dizzy and lightheaded. Has been having 1 week of nausea vomiting. Has been a bit off balance. Denies any fever and chills. Has a chronic cough. Little sputum if any. Patient started hypertonic saline and admitted to ICU. Patient admitted with severe hyponatremia, SIADH, lung mass, COPD 01/03/2022: Or fluid ICU. Sodium still running low. Getting sodium chloride tablet. Saline. Fluid restriction. Computed tomography scan has showed a lung mass. Bleed bronchoscopy at some point. Breathing better. Patient's son and visiting. Breathing better. Hypertonic saline was discontinued early hours a day. Active Medications Acetaminophen (Acetaminophen Tab 325 Mg Tab) 650 mg PO Q6HR PRN PRN Reason: Mild Pain or Fever > 100.5 Last Admin: 01/03/22 01:07 Dose: 650 mg Albuterol/Ipratropium (Ipratropium-Albuterol 3 Ml Neb) 3 ml INHALATION RT-QID [facility] Last Admin: 01/03/22 16:21 Dose: 3 ml Azathioprine (Azathioprine 50 Mg Tab) 50 mg PO DAILY [facility] Last Admin: 01/03/22 09:58 Dose: 50 mg Budesonide (Budesonide 1 Mg/2 Ml Nebu) 1 mg INHALATION RT-BID [facility] Last Admin: 01/03/22 09:27 Dose: 1 mg Enoxaparin Sodium (Enoxaparin 40 Mg/0.4 Ml Syringe) 40 mg SQ DAILY [facility] Last Admin: 01/03/22 08:47 Dose: 40 mg Sodium Chloride (Saline 0.9%) 1,000 mls @ 70 mls/hr IV .[id number] [facility] Last Admin: 01/03/22 14:51 Dose: 70 mls/hr Leflunomide (Leflunomide 20 Mg Tab) 20 mg PO DAILY [facility] Last Admin: 01/03/22 08:49 Dose: 20 mg Miscellaneous Information (Rx Info: Iv Contrast Was Given 1 Each Misc) 1 each MISCELLANE DAILY PRN PRN Reason: Per Protocol Stop: 01/04/22 11:42 Miscellaneous Information (Potassium Replacement Protocol 1 Each Misc) 1 each MISCELLANE DAILY PRN; Protocol PRN Reason: Per Protocol Naloxone HCl (Naloxone 0.4 Mg/Ml 1 Ml Vial) 0.2 mg IV Q2M PRN PRN Reason: Opioid Reversal Nicotine (Nicotine 21mg/24hr Patch) 1 patch TRANSDERM DAILY [facility] Last Admin: 01/03/22 08:48 Dose: 1 patch Past medical history to include: Rheumatoid arthritis Social history: . Smokes about a pack and a half a day for close to 60's. No alcohol. Retired from [employer]. Physical examination: VITAL SIGNS: 97.8, 73, 12, 107 with 59, 96% room air GENERAL: Reclining in bed, awake, comfortable EYES: Pupils equal. Conjunctiva normal. HEENT: External appearance of nose and ears normal, oral cavity grossly normal. NECK: JVD not raised; masses not palpable. HEART: First and second heart sounds are normal; no edema. LUNGS: Respiratory rate increased; decreased breath sounds, ABDOMEN: Soft, nontender, liver spleen not palpable, no masses palpable. PSYCH: Alert and oriented x3; mood and affect normal. MUSCULOSKELETAL:No Clubbing/cyanosis;muscles-grossly intact, evidence of arthritis INVESTIGATIONS, reviewed in the clinical context: CT chest with contrast: Lung masses/nodules. Possible pulmonary fibrosis. 01/03/2022: WBC 5.5 hemoglobin 11.5 platelets 195 sodium 115 potassium 4.1 creatinine 0.37 iron 26 TIBC 210% saturation 12.2 transferring 150 ferritin 712 White count 6.7 hemoglobin 11.9 platelets 184 sodium once was 7 potassium 4.2 bicarbonate 20 creatinine 0.36 serum osmolality 222 albumin 2.9 UA ketones 2+ EKG tracing personally reviewed by me-normal sinus rhythm. Chest x-ray film personally reviewed by me-consolidation right upper lobe. Hyperinflation. Assessment and plan: -Severe hypoosmolar hyponatremia. Likely SIADH,: Slow to respond received hypertonic saline. saline. Fluid restriction 1500 mL daily. Avoid free fluid. Salt tablets -Lung mass strongly suspicious for malignancy. 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 Follow with pulmonary Dr. Basha -Chronic nicotine dependence, cigarettes smoking Nicotine patch -COPD in a current smoker Guerita Pulall -Chronic rheumatoid arthritis Ander Foote, -Normocytic anemia, likely from chronic disease and iron deficiency Give IV iron Discussed with patient and family at the bedside. Saline. Fluid restriction. Follow sodium. IV iron.
[2022-01-03] MEDS: SODIUM FERRIC GLUCONAT-SUCROSE 125 MG in SODIUM CHLORIDE 0.9% 100 ML IVPB SCH (18:59)
[2022-01-04] MEDS: SODIUM CHLORIDE 3%(HYPERTONIC) 500 ML IV SCH (09:45)
[2022-01-04] MEDS: ENOXAPARIN 40 MG/0.4 ML SYRINGE SQ SCH (10:08)
[2022-01-04] MEDS: NICOTINE 21MG/24HR PATCH TRANSDERM SCH ×2 (10:08→10:09)
[2022-01-04] MEDS: azaTHIOprine 50 MG TAB PO SCH (10:08)
[2022-01-04] MEDS: LEFLUNOMIDE 20 MG TAB PO SCH (10:09)
[2022-01-04] MEDS: BUDESONIDE 1 MG/2 ML NEBU INHALATION SCH ×2 (10:09→20:17)
[2022-01-04] MEDS: IPRATROPIUM-ALBUTEROL 3 ML NEB INHALATION SCH ×4 (10:09→20:17)
--- NOTE | 2022-01-04 11:41 | PN ---
PROGRESS NOTE DATE OF SERVICE: 01/02/2022 SUBJECTIVE: A 76-year-old gentleman, who I saw in consultation a few days ago. He came in with dizziness, confusion, and hyponatremia. His sodium was down to 107. Initially, he did receive 3% saline. Today, sodium is 113. He is not receiving any IV fluids. He is on room air. He is very stable. He had an uneventful night. The patient was found on chest x-ray to have an infiltrate in the right upper lobe. CAT scan suggested the possibility of malignancy. The patient is a heavy smoker. This may be SIADH. OBJECTIVE: VITAL SIGNS: Blood pressure 114/70, heart rate 79, respiratory rate 18, temperature 98 degrees, saturations 97% on room air. GENERAL: He appears in no acute distress. HEENT: Grossly unremarkable. NECK: Supple. Full range of motion. No adenopathy. Neck veins are flat. CARDIOVASCULAR: Reveals regular rhythm and rate. Heart rate 79. S1, S2 normal. No S3, S4, or murmur. LUNGS: Reveal mostly clear breath sounds. Minimal scattered rhonchi. No wheezes or crackles. ABDOMEN: Soft. EXTREMITIES: Intact. No cyanosis, clubbing, or edema. SKIN: Without rash. NEUROLOGIC: Brief, but nonfocal. Labs, x-rays, and medications, cannot be reviewed. ASSESSMENT: 1. Hyponatremia, which may reflect syndrome of inappropriate secretion of antidiuretic hormone, from a primary lung malignancy. 2. History of heavy tobacco use. 3. Abnormalities on chest x-ray/CAT scan, right upper lobe, which will need outpatient evaluation. PLAN: The patient is doing well. He had an uneventful night. He is not receiving 3% saline. He could be transferred out to the general medical floor without telemetry. I did explain to the that he will need an outpatient PET scan and likely a biopsy. MMODL / IJN: [id number] /
[2022-01-04] MEDS: ACETAMINOPHEN TAB 325 MG TAB PO PRN (16:19)
--- NOTE | 2022-01-04 16:25 | P.PN ---
Subjective Progress Note Date: 01/04/22 Follow-up for hyponatremia. No nausea vomiting diarrhea. Family at bedside. Urine output of 1.6 L in the last 24 hours. Objective - Vital Signs Vital signs: Vital Signs Temp 98.2 F 01/04/22 08:00 Pulse 76 01/04/22 15:50 Resp 15 01/04/22 15:00 BP 107/64 01/04/22 15:00 Pulse Ox 96 01/04/22 15:00 FiO2 96 01/04/22 12:00 Intake & Output 01/03/22 01/04/22 01/04/22 18:59 06:59 18:59 Intake Total 350 70 525 Output Total 1000 650 500 Balance -650 -580 25 Intake: IV 350 70 125 0.9 NACL 350 70 Sodium Chloride 3%( 125 Hypertonic) 500 ml @ 40 mls/hr IV .[id number] [facility] Rx #:[id number] Oral 400 Output: Urine 1000 650 500 Other: # Voids 1 - Exam No acute distress S1-S2 heard Lungs clear No edema - Labs CBC & Chem 7: 01/03/22 06:40 01/04/22 03:19 Labs: Abnormal Lab Results - Last 24 Hours (Table) 01/03/22 01/03/22 01/04/22 Range/Units 00:00 19:17 03:19 Sodium 113 L* 114 L* 114 L* (137-145) mmol/L Assessment and Plan Assessment: #1 hypernatremia suspect SIADH from underlying 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 #2 mass like lesions in the right lung, concern for malignancy. #3 rheumatoid arthritis Plan: #1 sodium 107 [01/02/2022 at 2:50 PM] improved to 114 [01/03/2022 at 3 PM], sodium still 114 today. Expected sodium was 120 today. #2 restart 3% at 25 ML's an hour to reach the goal serum sodium. #3 serum sodium off 126 by tomorrow afternoon. Once it reaches the goal discontinue 3%. #4 if sodium still persistent to correct, started 10 and salt tablets. #5 labs every 6 hours
--- NOTE | 2022-01-04 17:30 | P.PN ---
Progress Note - Text Progress Note Date: 01/04/22 Chief Complaint: Low-sodium This is a 76-year-old patient who is a long-standing smoker. Patient was sent from [facility] as sodium was found to be very low. 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 Sodium was 106. He was started on hypertonic saline given at the outside hospital and then subsequently transferred here. Patient has noticed that he's been dizzy and lightheaded. Has been having 1 week of nausea vomiting. Has been a bit off balance. Denies any fever and chills. Has a chronic cough. Little sputum if any. Patient started hypertonic saline and admitted to ICU. Patient admitted with severe hyponatremia, SIADH, lung mass, COPD 01/03/2022: Or fluid ICU. Sodium still running low. Getting sodium chloride tablet. Saline. Fluid restriction. Computed tomography scan has showed a lung mass. Bleed bronchoscopy at some point. Breathing better. Patient's son and visiting. Breathing better. Hypertonic saline was discontinued early hours a day. 01/04/2022: In the ICU. Sodium around 114. Tolerating diet. He received IV iron. Placed on hypertonic saline. at the bedside. Breathing better. Active Medications Acetaminophen (Acetaminophen Tab 325 Mg Tab) 650 mg PO Q6HR PRN PRN Reason: Mild Pain or Fever > 100.5 Last Admin: 01/04/22 16:19 Dose: 650 mg Albuterol/Ipratropium (Ipratropium-Albuterol 3 Ml Neb) 3 ml INHALATION RT-QID [facility] Last Admin: 01/04/22 15:41 Dose: 3 ml Azathioprine (Azathioprine 50 Mg Tab) 50 mg PO DAILY [facility] Last Admin: 01/04/22 10:08 Dose: 50 mg Budesonide (Budesonide 1 Mg/2 Ml Nebu) 1 mg INHALATION RT-BID [facility] Last Admin: 01/04/22 10:09 Dose: 1 mg Enoxaparin Sodium (Enoxaparin 40 Mg/0.4 Ml Syringe) 40 mg SQ DAILY [facility] Last Admin: 01/04/22 10:08 Dose: 40 mg Ferric Sodium Gluconate 125 mg (/ Sodium Chloride) 110 mls @ 100 mls/hr IVPB DAILY@1800 [facility] Stop: 01/04/22 19:05 Last Admin: 01/03/22 18:59 Dose: 100 mls/hr Sodium Chloride (Hypertonic) (Saline 3% (Hypertonic)) 500 mls @ 25 mls/hr IV .Q20H [facility]; Protocol Stop: 01/05/22 10:38 Last Admin: 01/04/22 09:45 Dose: 25 mls/hr Leflunomide (Leflunomide 20 Mg Tab) 20 mg PO DAILY [facility] Last Admin: 01/04/22 10:09 Dose: 20 mg Miscellaneous Information (Potassium Replacement Protocol 1 Each Misc) 1 each MISCELLANE DAILY PRN; Protocol PRN Reason: Per Protocol Naloxone HCl (Naloxone 0.4 Mg/Ml 1 Ml Vial) 0.2 mg IV Q2M PRN PRN Reason: Opioid Reversal Nicotine (Nicotine 21mg/24hr Patch) 1 patch TRANSDERM DAILY [facility] Last Admin: 01/04/22 10:09 Dose: 1 patch Past medical history to include: Rheumatoid arthritis Social history: . Smokes about a pack and a half a day for close to 60's. No alcohol. Retired from [employer]. Physical examination: VITAL SIGNS: 38.2, 75, 15, 116/72, 96% room air GENERAL: Reclining in bed, awake, comfortable EYES: Pupils equal. Conjunctiva normal. HEENT: External appearance of nose and ears normal, oral cavity grossly normal. NECK: JVD not raised; masses not palpable. HEART: First and second heart sounds are normal; no edema. LUNGS: Respiratory rate increased; decreased breath sounds, ABDOMEN: Soft, nontender, liver spleen not palpable, no masses palpable. PSYCH: Alert and oriented x3; mood and affect normal. MUSCULOSKELETAL:No Clubbing/cyanosis;muscles-grossly intact, evidence of arthritis INVESTIGATIONS, reviewed in the clinical context: 01/04/2022: Sodium 114 CT chest with contrast: Lung masses/nodules. Possible pulmonary fibrosis. 01/03/2022: WBC 5.5 hemoglobin 11.5 platelets 195 sodium 115 potassium 4.1 creatinine 0.37 iron 26 TIBC 210% saturation 12.2 transferring 150 ferritin 712 White count 6.7 hemoglobin 11.9 platelets 184 sodium once was 7 potassium 4.2 bicarbonate 20 creatinine 0.36 serum osmolality 222 albumin 2.9 UA ketones 2+ EKG tracing personally reviewed by me-normal sinus rhythm. Chest x-ray film personally reviewed by me-consolidation right upper lobe. Hyperinflation. Assessment and plan: -Severe hypoosmolar hyponatremia. Likely SIADH,: Slow to respond Restarted hypertonic saline. saline. Fluid restriction 1500 mL daily. Avoid free fluid. Salt tablets -Lung mass strongly suspicious for malignancy. 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 Follow with pulmonary Dr. Hilton -Chronic nicotine dependence, cigarettes smoking Nicotine patch -COPD in a current smoker Guerita, Pulmicort -Chronic rheumatoid arthritis Ander Foote, -Normocytic anemia, likely from chronic disease and iron deficiency Give IV iron Hypertonic saline restarted. Other medications fluid restriction to continue. Discussed with the patient and at the bedside. Follow with nephrology.
[2022-01-04] MEDS: SODIUM FERRIC GLUCONAT-SUCROSE 125 MG in SODIUM CHLORIDE 0.9% 100 ML IVPB SCH (17:35)
[2022-01-04 18:14] LABS: Basophils % (A) 0 %; Eosinophils # (A) 0.1 k/uL (0-0.7); Eosinophils % (A) 1 %; HCT 32.2 % (39.0-53.0); Lymphocytes # (A) 0.7 k/uL (1.0-4.8); Lymphocytes % (A) 10 %; MCH 30.9 pg (25.0-35.0); MCHC 34.1 g/dL (31.0-37.0); MCV 90.7 fL (80.0-100.0); Mean Platelet Volume 9.3; Monocytes # (A) 0.5 k/uL (0-1.0); Monocytes % (A) 7 %; Neutrophils # (A) 5.7 k/uL (1.3-7.7); Neutrophils % (A) 82 %; Platelet Count 146 k/uL (150-450); RBC 3.55 m/uL (4.30-5.90); RDW 13.3 % (11.5-15.5)
[2022-01-04 19:42] LABS: Sodium 113 mmol/L (137-145)
[2022-01-04 19:51] LABS: African American GFR (CKD) >90 (>60 ml/min/1.73 sqM); Anion Gap 6 mmol/L; Blood Urea Nitrogen 3 mg/dL (9-20); Calcium 7.7 mg/dL (8.4-10.2); Carbon Dioxide 22 mmol/L (22-30); Chloride 85 mmol/L (98-107); Glucose 87 mg/dL (74-99); Non-African American GFR(CKD) >90 (>60 ml/min/1.73 sqM); Potassium 4.7 mmol/L (3.5-5.1)
[2022-01-05] MEDS: SODIUM CHLORIDE 3%(HYPERTONIC) 500 ML IV SCH ×2 (06:00→19:30)
[2022-01-05 07:19] LABS: Basophils % (A) 0 %; Eosinophils % (A) 0 %; HCT 32.7 % (39.0-53.0); HGB 11.3 gm/dL (13.0-17.5); Lymphocytes # (A) 0.7 k/uL (1.0-4.8); Lymphocytes % (A) 10 %; MCH 30.7 pg (25.0-35.0); MCHC 34.4 g/dL (31.0-37.0); MCV 89.2 fL (80.0-100.0); Mean Platelet Volume 7.6; Monocytes # (A) 0.2 k/uL (0-1.0); Monocytes % (A) 3 %; Neutrophils # (A) 6.4 k/uL (1.3-7.7); Neutrophils % (A) 85 %; Platelet Count 213 k/uL (150-450); RBC 3.67 m/uL (4.30-5.90); RDW 13.7 % (11.5-15.5); WBC 7.5 k/uL (3.8-10.6)
[2022-01-05] MEDS: BUDESONIDE 1 MG/2 ML NEBU INHALATION SCH ×2 (07:54→19:41)
[2022-01-05] MEDS: IPRATROPIUM-ALBUTEROL 3 ML NEB INHALATION SCH ×4 (07:54→19:41)
[2022-01-05] MEDS: azaTHIOprine 50 MG TAB PO SCH (08:54)
[2022-01-05] MEDS: ENOXAPARIN 40 MG/0.4 ML SYRINGE SQ SCH (08:54)
[2022-01-05] MEDS: NICOTINE 21MG/24HR PATCH TRANSDERM SCH (08:54)
[2022-01-05] MEDS: LEFLUNOMIDE 20 MG TAB PO SCH (08:54)
--- NOTE | 2022-01-05 10:30 | P.PN ---
Subjective Progress Note Date: 01/05/22 Principal diagnosis: Hyponatremia. Pulmonary consult dated 01/02/2022. 76-year-old male transferred from an outside hospital. The patient was found to be profoundly hyponatremic. Here, his sodium was 107. According to family members, he's not been doing well for weeks or so. His been having dehydration, secondary to nausea and vomiting. More recently, he's had loss of balance, confusion, and dizziness. The patient does have a history of rheumatoid arthritis, and chronic heavy tobacco use. The patient is currently on room air. The patient's getting 3% saline at 40 mL an hour. He has been seen by nephrology. Currently labs include a sodium 107, potassium 4.2, CVA, CO2 20, anion gap 9, BUN 6, creatinine 0.36. The patient's osmolarity is 222. TSH is normal. Glucose 88. White count is 6.7, hemoglobin 11.9, and platelet count 184,000. Chest x-ray shows a right upper lobe infiltrate. The patient is not really having any signs or symptoms of pneumonia. There is no fever, cough, phlegm production, or shortness of breath. Progress note dated 01/03/2022. 76-year-old male transferred from an outside hospital with hyponatremia. Chest x-ray suggested a infiltrate in the right upper lobe. I was concerned about SIADH. A CAT scan was ordered. Clinically, the patient stable. The patient's sodium is up to 115. It was previously 107. He's on room air. He is getting saline at 10 mL an hour. White count 5.5, hemoglobin 11.5, hematocrit 43.6, and platelet count 295,000. Sodium 115, potassium 4.1, chloride 87, CO2 22, BUN 2, creatinine 0.37. Computed tomography scan of the chest showed a soft tissue density within the posterior medial right upper lung field measuring 3.2 x 3.8 cm. A pleural-based nodule in the posterior lateral right upper lobe lung field measuring 2.1 x 1.3 cm, and lateral right lung nodules, at the same level, measuring 2 x 1.4 cm. Pleural effusions are small. There is no hilar or mediastinal adenopathy. Outpatient PET scan will need to be ordered. Progress note dated 01/05/2022. 76-year-old male transferred from an outside hospital with hyponatremia. Chest x-ray suggested an infiltrate in the right upper lobe, and I was concerned about SIADH, and a CAT scan showed potential lung neoplasm, in the right upper lobe. The patient is currently being treated for significant and severe hyponatremia, with a morning sodium of 115. The patient's on room air. He is getting 3% saline at 25 mL an hour. White count 7.5, hemoglobin 11.3, hematocrit 32.7, and platelet count normal. Objective - Vital Signs Vital signs: Vital Signs Temp 97.8 F 01/05/22 08:00 Pulse 75 01/05/22 10:00 Resp 25 H 01/05/22 10:00 BP 116/74 01/05/22 10:00 Pulse Ox 98 01/05/22 10:00 FiO2 96 01/02/22 16:00 Intake & Output 01/04/22 01/05/22 01/05/22 19:59 06:59 18:59 Intake Total 75 Output Total 625 Balance -550 Weight Intake: IV 75 Sodium Chloride 3%( 75 Hypertonic) 500 ml @ 40 mls/hr IV .[id number] [facility] Rx #:[id number] Intake, IV Titration Amount Sodium Ferric Gluconat- Sucrose 125 mg In Sodium Chloride 0.9% 100 ml @ 100 mls/hr IVPB DAILY@ 1800 [facility] Rx#:[id number] Oral 0 Output: Urine 625 Other: # Voids 0 - Exam No acute distress, oriented 3. No respiratory distress. Room air saturation 98%. HEENT examination is grossly unremarkable. Neck supple. Full range of motion. No adenopathy thyromegaly or neck vein distention. Cardiovascular examination reveals regular rhythm rate. S1-S2 normal. No S3 or S4. No discernible murmur noted. Heart rate 75 bpm. Lungs reveal clear breath sounds. Breath sounds are equal bilaterally. No adventitious lung sounds including wheezes rhonchi or crackles. Abdomen soft bowel sounds are heard. No masses or tenderness. Extremities are intact. No cyanosis clubbing or edema. Skin is without rash or lesion. Neurologic examination is brief but nonfocal. - Labs CBC & Chem 7: 01/05/22 06:21 01/05/22 06:21 Labs: Abnormal Lab Results - Last 24 Hours (Table) 01/04/22 01/04/22 01/04/22 Range/Units 03:19 06:36 06:36 RBC 3.55 L (4.30-5.90) m/uL Hgb 11.0 L (13.0-17.5) gm/dL Hct 32.2 L (39.0-53.0) % Plt Count 146 L (150-450) k/uL Lymphocytes # 0.7 L (1.0-4.8) k/uL Sodium 114 L* 113 L* (137-145) mmol/L Chloride 85 L (98-107) mmol/L BUN 3 L (9-20) mg/dL Creatinine 0.43 L (0.66-1.25) mg/dL Calcium 7.7 L (8.4-10.2) mg/dL 01/04/22 01/05/22 01/05/22 Range/Units 20:53 01:28 EST 06:21 RBC (4.30-5.90) m/uL Hgb (13.0-17.5) gm/dL Hct (39.0-53.0) % Plt Count (150-450) k/uL Lymphocytes # (1.0-4.8) k/uL Sodium 115 L* 114 L* 115 L* (137-145) mmol/L Chloride (98-107) mmol/L BUN (9-20) mg/dL Creatinine (0.66-1.25) mg/dL Calcium (8.4-10.2) mg/dL 01/05/22 Range/Units 06:21 RBC 3.67 L (4.30-5.90) m/uL Hgb 11.3 L (13.0-17.5) gm/dL Hct 32.7 L (39.0-53.0) % Plt Count (150-450) k/uL Lymphocytes # 0.7 L (1.0-4.8) k/uL Sodium (137-145) mmol/L Chloride (98-107) mmol/L BUN (9-20) mg/dL Creatinine (0.66-1.25) mg/dL Calcium (8.4-10.2) mg/dL Assessment and Plan Assessment: Severe hyponatremia, with dizziness, confusion, and loss of balance. Multiple abnormalities right lung, potentially consistent with lung cancer, which would explain the hyponatremia. Recent chronic nausea and vomiting. Rule out SIADH. History of rheumatoid arthritis. Possible pneumonia/mass, right upper lobe. History of ongoing tobacco use with nicotine addiction. Plan: Plan dated 01/02/2022. We will check a pro-calcitonin level. The patient will probably benefit from a computed tomography scan of the chest with contrast. Nephrology has seen the patient because of his hyponatremia. The patient remains on 3% saline. The goal is to raise the sodium no more than 8 mEq per liter in the first 24 hours. Additional recommendations and suggestions are forthcoming. Plan dated 01/03/2022. The patient is again seen in room 265. Labs, x-rays, and medications are reviewed. The patient may in fact have lung cancer. The hyponatremia may be secondary to SIADH. I told the patient's , that he will need an outpatient PET scan. He likely will benefit from a biopsy. More importantly, he has to get over this acute episode of hyponatremia. Nephrology is on the case. 3% saline was discontinued by them. Plan dated 01/05/2022. The patient is again seen in room 265. I explained to the over and over, that the most immediate issue was taking care of the hyponatremia. Once that is corrected, we can deal with the potential of a lung primary. Labs, x-rays, and medications are reviewed. It turns out that this patient has been sick for 6 weeks or so. Now all of a sudden, the wants something done in 2 days. The patient was restarted on 3% saline which I think is a right thing to do. We will continue to follow make recommendations along the way. Time with Patient: Less than 30
[2022-01-05] MEDS ORDERED: TOLVAPTAN 15 MG 1/2 TABLET PO ONE (16:18)
--- NOTE | 2022-01-05 16:21 | P.PN ---
Subjective Progress Note Date: 01/05/22 Follow-up for hyponatremia. No nausea vomiting diarrhea. Urine output of 1.7 L in the last 24 hours. Objective - Vital Signs Vital signs: Vital Signs Temp 98 F 01/05/22 16:00 Pulse 86 01/05/22 16:00 Resp 25 H 01/05/22 16:00 BP 121/64 01/05/22 16:00 Pulse Ox 98 01/05/22 16:00 FiO2 96 01/02/22 16:00 Intake & Output 01/04/22 01/05/22 01/05/22 19:59 06:59 18:59 Intake Total 450 Output Total 1185 Balance -735 Weight Intake: IV 250 Sodium Chloride 3%( 250 Hypertonic) 500 ml @ 40 mls/hr IV .[id number] [facility] Rx #:[id number] Intake, IV Titration Amount Sodium Ferric Gluconat- Sucrose 125 mg In Sodium Chloride 0.9% 100 ml @ 100 mls/hr IVPB DAILY@ 1800 [facility] Rx#:[id number] Oral 200 Output: Urine 1185 Other: # Voids 0 # Bowel Movements 1 - Exam No acute distress S1-S2 heard Lungs clear No edema - Labs CBC & Chem 7: 01/05/22 06:21 01/05/22 14:14 Labs: Abnormal Lab Results - Last 24 Hours (Table) 01/04/22 01/04/22 01/04/22 Range/Units 06:36 06:36 20:53 RBC 3.55 L (4.30-5.90) m/uL Hgb 11.0 L (13.0-17.5) gm/dL Hct 32.2 L (39.0-53.0) % Plt Count 146 L (150-450) k/uL Lymphocytes # 0.7 L (1.0-4.8) k/uL Sodium 113 L* 115 L* (137-145) mmol/L Chloride 85 L (98-107) mmol/L BUN 3 L (9-20) mg/dL Creatinine 0.43 L (0.66-1.25) mg/dL Calcium 7.7 L (8.4-10.2) mg/dL 01/05/22 01/05/22 01/05/22 Range/Units 01:28 EST 06:21 06:21 RBC 3.67 L (4.30-5.90) m/uL Hgb 11.3 L (13.0-17.5) gm/dL Hct 32.7 L (39.0-53.0) % Plt Count (150-450) k/uL Lymphocytes # 0.7 L (1.0-4.8) k/uL Sodium 114 L* 115 L* (137-145) mmol/L Chloride (98-107) mmol/L BUN (9-20) mg/dL Creatinine (0.66-1.25) mg/dL Calcium (8.4-10.2) mg/dL 01/05/22 01/05/22 Range/Units 10:07 14:14 RBC (4.30-5.90) m/uL Hgb (13.0-17.5) gm/dL Hct (39.0-53.0) % Plt Count (150-450) k/uL Lymphocytes # (1.0-4.8) k/uL Sodium 115 L* 116 L* (137-145) mmol/L Chloride (98-107) mmol/L BUN (9-20) mg/dL Creatinine (0.66-1.25) mg/dL Calcium (8.4-10.2) mg/dL Assessment and Plan Assessment: #1 hypernatremia suspect SIADH from underlying 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 #2 mass like lesions in the right lung, concern for malignancy. #3 rheumatoid arthritis Plan: #1 sodium 107 [01/02/2022 at 2:50 PM] improved to 114 [01/03/2022 at 3 PM], sodium still 116 today. Expected sodium was 120 today. #2 continue 3% at 25 ML's an hour to reach the goal serum sodium. Add Samsca 15 mg today. #3 serum sodium off 126 by tomorrow afternoon, 3% can be discontinued. #4 labs every 6 hours
[2022-01-05] MEDS ORDERED: SODIUM CHLORIDE 3%(HYPERTONIC) 500 ML IV SCH (16:30)
--- NOTE | 2022-01-05 17:48 | P.PN ---
Progress Note - Text Progress Note Date: 01/05/22 Chief Complaint: Low-sodium This is a 76-year-old patient who is a long-standing smoker. Patient was sent from [facility] as sodium was found to be very low. 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 Sodium was 106. He was started on hypertonic saline given at the outside hospital and then subsequently transferred here. Patient has noticed that he's been dizzy and lightheaded. Has been having 1 week of nausea vomiting. Has been a bit off balance. Denies any fever and chills. Has a chronic cough. Little sputum if any. Patient started hypertonic saline and admitted to ICU. Patient admitted with severe hyponatremia, SIADH, lung mass, COPD 01/03/2022: Or fluid ICU. Sodium still running low. Getting sodium chloride tablet. Saline. Fluid restriction. Computed tomography scan has showed a lung mass. Bleed bronchoscopy at some point. Breathing better. Patient's son and visiting. Breathing better. Hypertonic saline was discontinued early hours a day. 01/04/2022: In the ICU. Sodium around 114. Tolerating diet. He received IV iron. Placed on hypertonic saline. at the bedside. Breathing better. 01/05/2022: ICU. Sodium 114. On hypertonic saline. Will add salt tablets. Fluid restriction. Cough. Drinks no sputum. Patient received Samsca. Add sodium chloride tablet. Active Medications Acetaminophen (Acetaminophen Tab 325 Mg Tab) 650 mg PO Q6HR PRN PRN Reason: Mild Pain or Fever > 100.5 Last Admin: 01/04/22 16:19 Dose: 650 mg Albuterol/Ipratropium (Ipratropium-Albuterol 3 Ml Neb) 3 ml INHALATION RT-QID [facility] Last Admin: 01/05/22 15:46 Dose: 3 ml Azathioprine (Azathioprine 50 Mg Tab) 50 mg PO DAILY [facility] Last Admin: 01/05/22 08:54 Dose: 50 mg Budesonide (Budesonide 1 Mg/2 Ml Nebu) 1 mg INHALATION RT-BID [facility] Last Admin: 01/05/22 07:54 Dose: 1 mg Enoxaparin Sodium (Enoxaparin 40 Mg/0.4 Ml Syringe) 40 mg SQ DAILY [facility] Last Admin: 01/05/22 08:54 Dose: 40 mg Sodium Chloride (Hypertonic) (Saline 3% (Hypertonic)) 500 mls @ 25 mls/hr IV .Q20H [facility]; Protocol Stop: 01/06/22 16:20 Leflunomide (Leflunomide 20 Mg Tab) 20 mg PO DAILY [facility] Last Admin: 01/05/22 08:54 Dose: 20 mg Miscellaneous Information (Potassium Replacement Protocol 1 Each Misc) 1 each MISCELLANE DAILY PRN; Protocol PRN Reason: Per Protocol Naloxone HCl (Naloxone 0.4 Mg/Ml 1 Ml Vial) 0.2 mg IV Q2M PRN PRN Reason: Opioid Reversal Nicotine (Nicotine 21mg/24hr Patch) 1 patch TRANSDERM DAILY [facility] Last Admin: 01/05/22 08:54 Dose: 1 patch Past medical history to include: Rheumatoid arthritis Social history: . Smokes about a pack and a half a day for close to 60's. No alcohol. Retired from [employer]. Physical examination: VITAL SIGNS: 97.8, 72, 16, 139 with 75, 100% room air GENERAL: Reclining in bed, eating lunch EYES: Pupils equal. Conjunctiva normal. HEENT: External appearance of nose and ears normal, oral cavity grossly normal. NECK: JVD not raised; masses not palpable. HEART: First and second heart sounds are normal; no edema. LUNGS: Respiratory rate increased; decreased breath sounds, ABDOMEN: Soft, nontender, liver spleen not palpable, no masses palpable. PSYCH: Alert and oriented x3; mood and affect normal. MUSCULOSKELETAL:No Clubbing/cyanosis;muscles-grossly intact, evidence of arthritis INVESTIGATIONS, reviewed in the clinical context: 01/05/2022: Sodium 115 white count 7.5 hemoglobin 11.3 01/04/2022: Sodium [address] CT chest with contrast: Lung masses/nodules. Possible pulmonary fibrosis. 01/03/2022: WBC 5.5 hemoglobin 11.5 platelets 195 sodium 115 potassium 4.1 creatinine 0.37 iron 26 TIBC 210% saturation 12.2 transferring 150 ferritin 712 White count 6.7 hemoglobin 11.9 platelets 184 sodium once was 7 potassium 4.2 bicarbonate 20 creatinine 0.36 serum osmolality 222 albumin 2.9 UA ketones 2+ EKG tracing personally reviewed by me-normal sinus rhythm. Chest x-ray film personally reviewed by me-consolidation right upper lobe. Hyperinflation. Assessment and plan: -Severe hypoosmolar hyponatremia. Likely SIADH,: Slow to respond hypertonic saline. Fluid restriction 1500 mL daily. Avoid free fluid. Salt tablets -Lung mass strongly suspicious for malignancy. 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 Follow with pulmonary Dr. Hilton -Chronic nicotine dependence, cigarettes smoking Nicotine patch -COPD in a current smoker Guerita Pulmicort -Chronic rheumatoid arthritis Imuran, Arava, -Normocytic anemia, likely from chronic disease and iron deficiency Give IV iron Hypertonic saline. fluid restriction sodium chloride tablets 4 times a day. Discussed with patient. Other medications to continue.
[2022-01-05] MEDS: SODIUM CHLORIDE TAB 1 GM TAB PO SCH ×2 (18:15→22:09)
[2022-01-05 19:29] LABS: Iron 114 ug/dL (65-175)
[2022-01-06] MEDS ORDERED: DEXTROSE 5% IN WATER 1,000 ML IV SCH (06:45)
[2022-01-06] MEDS: BUDESONIDE 1 MG/2 ML NEBU INHALATION SCH ×2 (08:14→20:38)
[2022-01-06] MEDS: IPRATROPIUM-ALBUTEROL 3 ML NEB INHALATION SCH ×4 (08:14→20:38)
[2022-01-06] MEDS ORDERED: DEXTROSE 5% IN WATER 1,000 ML IV ONE ×2 (08:43→12:52)
[2022-01-06] MEDS ORDERED: DESMOPRESSIN ACETATE 4 MCG/ML VIAL (MDV) IV ONE (09:00)
--- NOTE | 2022-01-06 09:29 | P.PN ---
Subjective Patient is seen in follow-up for hyponatremia. 3% was stopped overnight. Patient received dose of Samsca yesterday. Was also started on high-dose sodium chloride tabs by primary team. Sodium level 130 this morning. Patient is resting in bed. No vomiting or diarrhea. Oral intake is fair. Vital signs are stable. General: Awake. No acute distress. HEENT: Head exam is unremarkable. LUNGS: Breath sounds decreased. HEART: Rate and Rhythm are regular. ABDOMEN: Soft, no distention. EXTREMITITES: No edema. Objective - Vital Signs Vital signs: Vital Signs Temp 97.5 F L 01/06/22 00:00 Pulse 85 01/06/22 07:00 Resp 16 01/06/22 07:00 BP 108/67 01/06/22 07:00 Pulse Ox 89 L 01/06/22 07:00 FiO2 96 01/02/22 16:00 Intake & Output 01/05/22 01/06/22 01/06/22 18:59 06:59 18:59 Intake Total 750 175 100 Output Total 1185 2590 100 Balance -435 -2415 0 Weight 74.2 kg Intake: IV 300 75 Sodium Chloride 3%( 300 75 Hypertonic) 500 ml @ 40 mls/hr IV .[id number] [facility] Rx #:[id number] Oral 450 100 100 Output: Urine 1185 2590 100 Other: # Voids 0 # Bowel Movements 1 - Labs CBC & Chem 7: 01/05/22 06:21 01/06/22 05:41 Labs: Abnormal Lab Results - Last 24 Hours (Table) 01/05/22 01/05/22 01/05/22 Range/Units 10:07 14:14 17:26 Sodium 115 L* 116 L* 115 L* (137-145) mmol/L 01/05/22 01/06/22 01/06/22 Range/Units 21:37 01:34 05:41 Sodium 126 L 129 L 130 L (137-145) mmol/L Assessment and Plan Plan: Assessment: 1. Hyponatremia. Euvolemic. Concern for underlying SIADH from possible malignancy. Urine sodium 62 and urine osmolality 414. TSH normal. Cortisol normal. Sodium level 130 this morning. Patient received 3% saline which was stopped overnight. Received Samsca yesterday. Also sodium chloride tabs by primary team. 2. History of rheumatoid arthritis. 3. Right lung lesion concerning for malignancy. Plan: Sodium level corrected rapidly. I ordered DDAVP which patient received this morning. Also started on D5W. Stopped sodium chloride tabs. Repeat sodium level at 11 AM.
[2022-01-06] MEDS ORDERED: RX INFO: IV CONTRAST WAS GIVEN 1 EACH MISC MISCELLANE PRN (09:36)
[2022-01-06] MEDS: NICOTINE 21MG/24HR PATCH TRANSDERM SCH (09:45)
[2022-01-06] MEDS: ENOXAPARIN 40 MG/0.4 ML SYRINGE SQ SCH (09:46)
[2022-01-06] MEDS: azaTHIOprine 50 MG TAB PO SCH (09:46)
[2022-01-06] MEDS: LEFLUNOMIDE 20 MG TAB PO SCH (09:47)
[2022-01-06] MEDS: BACLOFEN 10 MG TAB PO PRN ×2 (11:07→18:56)
--- NOTE | 2022-01-06 12:24 | CT ---
EXAMINATION TYPE: CT brain wo con DATE OF EXAM: 01/06/2022 HISTORY: AMS CT DLP: 1188.4 mGycm. Automated Exposure Control for Dose Reduction was Utilized. TECHNIQUE: CT scan of the head is performed without contrast. COMPARISON: None. FINDINGS: There is no acute intracranial hemorrhage or midline shift identified. There is mild diff use ventricular and sulcal prominence consistent with diffuse age-related cerebral atrophy . There i s and mild low-attenuation in the periventricular white matter consistent with chronic small vessel i schemic change. Nasal septum slightly deviated to left of midline. The globes are intact and the vis ualized sinuses are clear. IMPRESSION: No acute intracranial hemorrhage or midline shift. There is mild diffuse age-related ce rebral atrophy and chronic small vessel ischemic change noted.
--- NOTE | 2022-01-06 12:39 | P.PN ---
Progress Note - Text Progress Note Date: 01/06/22 Chief Complaint: Low-sodium This is a 76-year-old patient who is a long-standing smoker. Patient was sent from [facility] as sodium was found to be very low. 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 Sodium was 106. He was started on hypertonic saline given at the outside hospital and then subsequently transferred here. Patient has noticed that he's been dizzy and lightheaded. Has been having 1 week of nausea vomiting. Has been a bit off balance. Denies any fever and chills. Has a chronic cough. Little sputum if any. Patient started hypertonic saline and admitted to ICU. Patient admitted with severe hyponatremia, SIADH, lung mass, COPD 01/03/2022: Or fluid ICU. Sodium still running low. Getting sodium chloride tablet. Saline. Fluid restriction. Computed tomography scan has showed a lung mass. Bleed bronchoscopy at some point. Breathing better. Patient's son and visiting. Breathing better. Hypertonic saline was discontinued early hours a day. 01/04/2022: In the ICU. Sodium around 114. Tolerating diet. He received IV iron. Placed on hypertonic saline. at the bedside. Breathing better. 01/05/2022: ICU. Sodium 114. On hypertonic saline. Will add salt tablets. Fluid restriction. Cough. Drinks no sputum. Patient received Samsca. Add sodium chloride tablet. 01/06/2022: Or fluid ICU. On neck patient received hypertonic saline, Samsca. Sodium chloride tablets. Sodium 129 this morning. Seen by nephrology. Sodium chloride tablets discontinued. Patient is off hypertonic saline. Intervention radiology consulted for possible biopsy. If not then outpatient as discussed with Dr. Barrios. Discussed with the patient and at the bedside. Oral intake fair. Having muscle spasms. Baclofen added. Active Medications Acetaminophen (Acetaminophen Tab 325 Mg Tab) 650 mg PO Q6HR PRN PRN Reason: Mild Pain or Fever > 100.5 Last Admin: 01/04/22 16:19 Dose: 650 mg Albuterol/Ipratropium (Ipratropium-Albuterol 3 Ml Neb) 3 ml INHALATION RT-QID [facility] Last Admin: 01/06/22 10:49 Dose: Not Given Azathioprine (Azathioprine 50 Mg Tab) 50 mg PO DAILY [facility] Last Admin: 01/06/22 09:46 Dose: 50 mg Baclofen (Baclofen 10 Mg Tab) 5 mg PO TID PRN PRN Reason: Muscle Spasm Last Admin: 01/06/22 11:07 Dose: 5 mg Budesonide (Budesonide 1 Mg/2 Ml Nebu) 1 mg INHALATION RT-BID [facility] Last Admin: 01/06/22 08:14 Dose: Not Given Enoxaparin Sodium (Enoxaparin 40 Mg/0.4 Ml Syringe) 40 mg SQ DAILY [facility] Last Admin: 01/06/22 09:46 Dose: 40 mg Dextrose/Water (Dextrose 5%-Water Iv Soln) 1,000 mls @ 100 mls/hr IV .Q10H ONE Stop: 01/06/22 18:42 Last Admin: 01/06/22 09:00 Dose: 100 mls/hr Leflunomide (Leflunomide 20 Mg Tab) 20 mg PO DAILY [facility] Last Admin: 01/06/22 09:47 Dose: 20 mg Miscellaneous Information (Potassium Replacement Protocol 1 Each Misc) 1 each MISCELLANE DAILY PRN; Protocol PRN Reason: Per Protocol Miscellaneous Information (Rx Info: Iv Contrast Was Given 1 Each Misc) 1 each MISCELLANE DAILY PRN PRN Reason: Per Protocol Stop: 01/08/22 09:36 Naloxone HCl (Naloxone 0.4 Mg/Ml 1 Ml Vial) 0.2 mg IV Q2M PRN PRN Reason: Opioid Reversal Nicotine (Nicotine 21mg/24hr Patch) 1 patch TRANSDERM DAILY [facility] Last Admin: 01/06/22 09:45 Dose: 1 patch Past medical history to include: Rheumatoid arthritis Social history: . Smokes about a pack and a half a day for close to 60's. No alcohol. Retired from [employer]. Physical examination: VITAL SIGNS: 98, 96, 25, 1 20 x 64, 98% room air GENERAL: Reclining in bed, not in distress EYES: Pupils equal. Conjunctiva normal. HEENT: External appearance of nose and ears normal, oral cavity grossly normal. NECK: JVD not raised; masses not palpable. HEART: First and second heart sounds are normal; no edema. LUNGS: Respiratory rate normal; decreased breath sounds, ABDOMEN: Soft, nontender, liver spleen not palpable, no masses palpable. PSYCH: Alert and oriented x3; mood and affect normal. MUSCULOSKELETAL:No Clubbing/cyanosis;muscles-grossly intact, evidence of arthritis INVESTIGATIONS, reviewed in the clinical context: 01/05/2022: Sodium 115 white count 7.5 hemoglobin 11.3 01/04/2022: Sodium 114 CT chest with contrast: Lung masses/nodules. Possible pulmonary fibrosis. 01/03/2022: WBC 5.5 hemoglobin 11.5 platelets 195 sodium 115 potassium 4.1 creatinine 0.37 iron 26 TIBC 210% saturation 12.2 transferring 150 ferritin 712 White count 6.7 hemoglobin 11.9 platelets 184 sodium once was 7 potassium 4.2 bicarbonate 20 creatinine 0.36 serum osmolality 222 albumin 2.9 UA ketones 2+ EKG tracing personally reviewed by me-normal sinus rhythm. Chest x-ray film personally reviewed by me-consolidation right upper lobe. Hyperinflation. Assessment and plan: -Severe hypoosmolar hyponatremia. Likely SIADH,: Better hypertonic saline stopped. Fluid restriction 1500 mL daily. Avoid free fluid. Salt tablets stopped -Lung mass strongly suspicious for malignancy. 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 Follow with pulmonary Dr. Hilton. Intervention radiology consult for possible biopsy -Chronic nicotine dependence, cigarettes smoking Nicotine patch -COPD in a current smoker Guerita, Pulmicort -Chronic rheumatoid arthritis Ander Foote, -Normocytic anemia, likely from chronic disease and iron deficiency Give IV iron Hypertonic saline. Sodium chloride tablets DISCONTINUED. Await if interventional radiology will do the biopsy. Otherwise outpatient navigational bronchoscopy.
--- NOTE | 2022-01-06 13:59 | P.PN ---
Subjective Progress Note Date: 01/06/22 Principal diagnosis: Acute hyponatremia possible SIADH 6-year-old male transferred from an outside hospital. The patient was found to be profoundly hyponatremic. Here, his sodium was 107. According to family members, he's not been doing well for weeks or so. His been having dehydration, secondary to nausea and vomiting. More recently, he's had loss of balance, confusion, and dizziness. The patient does have a history of rheumatoid arthritis, and chronic heavy tobacco use. The patient is currently on room air. The patient's getting 3% saline at 40 mL an hour. He has been seen by nephrology. Currently labs include a sodium 107, potassium 4.2, CVA, CO2 20, anion gap 9, BUN 6, creatinine 0.36. The patient's osmolarity is 222. TSH is normal. Glucose 88. White count is 6.7, hemoglobin 11.9, and platelet count 184,000. Chest x-ray shows a right upper lobe infiltrate. The patient is not really having any signs or symptoms of pneumonia. There is no fever, cough, phlegm production, or shortness of breath. Progress note dated 01/03/2022. 76-year-old male transferred from an outside hospital with hyponatremia. Chest x-ray suggested a infiltrate in the right upper lobe. I was concerned about SIADH. A CAT scan was ordered. Clinically, the patient stable. The patient's sodium is up to 115. It was previously 107. He's on room air. He is getting saline at 10 mL an hour. White count 5.5, hemoglobin 11.5, hematocrit 43.6, and platelet count 295,000. Sodium 115, potassium 4.1, chloride 87, CO2 22, BUN 2, creatinine 0.37. Computed tomography scan of the chest showed a soft tissue density within the posterior medial right upper lung field measuring 3.2 x 3.8 cm. A pleural-based nodule in the posterior lateral right upper lobe lung field measuring 2.1 x 1.3 cm, and lateral right lung nodules, at the same level, measuring 2 x 1.4 cm. Pleural effusions are small. There is no hilar or mediastinal adenopathy. Outpatient PET scan will need to be ordered. Progress note dated 01/05/2022. 76-year-old male transferred from an outside hospital with hyponatremia. Chest x-ray suggested an infiltrate in the right upper lobe, and I was concerned about SIADH, and a CAT scan showed potential lung neoplasm, in the right upper lobe. The patient is currently being treated for significant and severe hyponatremia, with a morning sodium of 115. The patient's on room air. He is getting 3% saline at 25 mL an hour. White count 7.5, hemoglobin 11.3, hematocrit 32.7, and platelet count normal. Reevaluated today on 12/06/21, patient seems to be doing well, is at bedside, and explained to the that the lesion in the right lung is thomas spicious for lung cancer, however this is yet to be confirmed. Recommended interventional radiology evaluation for possible CT-guided needle biopsy of the peripheral right lung lesion however the radiologist refers to have a PET scan and if it shows hypermetabolic activity he would definitely consider CT-guided needle biopsy. I also feel the same way that if the patient has a positive PET scan, medication bronchoscopy could be considered otherwise my recommendation at this point is to continue to correct his hyponatremia and discharge the patient home, follow up on outpatient basis with jerrell Stacy on outpatient basis again I'm strongly recommending a PET scan to be done on outpatient basis and decide based on the PET scan as the best approach for tissue diagnosis. The right upper lobe abnormality may not even be malignant, and may not show hypermetabolic uptake on the PET scan. At any rate to no reason to keep the patient in-house to make a definitive tissue diagnosis. Continue to address his hypernatremia for now. Objective - Vital Signs Vital signs: Vital Signs Temp 98.6 F 01/06/22 12:00 Pulse 85 01/06/22 13:00 Resp 16 01/06/22 13:00 BP 111/64 01/06/22 13:00 Pulse Ox 96 01/06/22 13:00 FiO2 96 01/02/22 16:00 Intake & Output 01/05/22 01/06/22 01/06/22 18:59 06:59 18:59 Intake Total 750 175 600 Output Total 0956 5027 750 Balance -435 -2415 -150 Weight 74.2 kg Intake: IV 300 75 Sodium Chloride 3%( 300 75 Hypertonic) 500 ml @ 40 mls/hr IV .[id number] [facility] Rx #:[id number] Intake, IV Titration 500 Amount Dextrose 5% in Water 1, 500 000 ml @ 100 mls/hr IV . Q10H ONE Rx#:[id number] Oral 450 100 100 Output: Urine 1185 2590 750 Other: # Voids 0 # Bowel Movements 1 - Exam Physical Exam: Revealed 76-year-old white male in no distress Head: Atraumatic, normocephalic. HEENT:[Neck is supple.] [No neck masses.] [No thyromegaly.] [No JVD.] Chest: [Crackles at the bases no rhonchi and no wheezes Cardiac Exam: [Normal S1 and S2, no S3 gallop, no murmur.] Abdomen: [Soft, nontender, no megaly, no rebound, no guarding, normal bowel sounds.] Extremities: [No clubbing, no edema, no cyanosis.] Neurological Exam: [Alert and oriented 3 no focal deficits Psychiatric: Normal mood affect and normal mental status examination however at times seems to be confused. - Labs CBC & Chem 7: 01/05/22 06:21 01/06/22 10:57 Labs: Abnormal Lab Results - Last 24 Hours (Table) 01/05/22 01/05/22 01/05/22 Range/Units 14:14 17:26 21:37 Sodium 116 L* 115 L* 126 L (137-145) mmol/L 01/06/22 01/06/22 01/06/22 Range/Units 01:34 05:41 10:57 Sodium 129 L 130 L 129 L (137-145) mmol/L Assessment and Plan Assessment: Impression: Severe hyponatremia with euvolemic possible SIADH Right upper lobe opacity, suspicious for bronchogenic carcinoma however this is yet to be confirmed by tissue diagnosis, radiologist does not feel the lesion is malignant unless a PET scan is positive then he would consider CT-guided needle biopsy Chronic nausea and vomiting History of rheumatoid arthritis Tobacco dependence syndrome Recommendation: Continue present supportive care measures Nephrology is addressing his hyponatremia Consider discharge planning if cleared by other consultants Follow-up with Dr. Hilton in 2 weeks post discharge, and I will arrange for outpatient PET scan. Explained to the that this is a chronic problem and definitely can wait a few more weeks for definitive tissue diagnosis and again I'm strongly recommending an outpatient PET scan before any tissue diagnosis is made or any procedure is attempted. May transfer out of the ICU Time with Patient: Less than 30
[2022-01-06] MEDS ORDERED: LORazepam 2 MG/ML INJ ONE (21:56)
[2022-01-06 22:05] LABS: Glucose,Whole Blood 229 mg/dL (70-110)
[2022-01-06 22:27] LABS: HCT 37.6 % (39.0-53.0); HGB 11.9 gm/dL (13.0-17.5); Hypochromasia Moderate; MCHC 31.7 g/dL (31.0-37.0); Platelet Count 218 k/uL (150-450); RBC 3.85 m/uL (4.30-5.90); RDW 13.8 % (11.5-15.5); WBC 7.7 k/uL (3.8-10.6)
[2022-01-06 22:36] LABS: MCV 97.7 fL (80.0-100.0)
[2022-01-06 22:43] LABS: AST 36 U/L (17-59); African American GFR (CKD) >90 (>60 ml/min/1.73 sqM); Albumin 3.4 g/dL (3.5-5.0); Alkaline Phosphatase 111 U/L (38-126); Anion Gap 16 mmol/L; Blood Urea Nitrogen 7 mg/dL (9-20); Calcium 8.5 mg/dL (8.4-10.2); Carbon Dioxide 15 mmol/L (22-30); Chloride 94 mmol/L (98-107); Glucose 180 mg/dL (74-99); Magnesium 2.2 mg/dL (1.6-2.3); Non-African American GFR(CKD) >90 (>60 ml/min/1.73 sqM); Potassium 3.7 mmol/L (3.5-5.1); Sodium 125 mmol/L (137-145); Total Bilirubin 0.4 mg/dL (0.2-1.3); Total Protein 6.1 g/dL (6.3-8.2)
--- NOTE | 2022-01-06 22:48 | CT ---
EXAMINATION TYPE: CT brain wo con DATE OF EXAM: 01/06/2022 COMPARISON: Today HISTORY: SEIZURE CT DLP: 1186.4 mGycm Automated exposure control for dose reduction was used. there is cerebral cortical atrophy. There is no mass effect normal in shift. No sign of intracranial hemorrhage. The calvarium is intact. The skull base is intact. There is normal aeration of the masto id sinuses. IMPRESSION: Cerebral atrophy. No acute intracranial abnormality. No change.
[2022-01-06 23:17] LABS: ALT 37 U/L (4-49)
[2022-01-07] MEDS: DEXTROSE 5% IN WATER 1,000 ML IV SCH ×2 (07:39→07:40)
[2022-01-07] MEDS: ENOXAPARIN 40 MG/0.4 ML SYRINGE SQ SCH (08:11)
[2022-01-07] MEDS: azaTHIOprine 50 MG TAB PO SCH (08:11)
[2022-01-07] MEDS: LEFLUNOMIDE 20 MG TAB PO SCH (08:12)
[2022-01-07] MEDS: BUDESONIDE 1 MG/2 ML NEBU INHALATION SCH ×2 (08:18→20:23)
[2022-01-07] MEDS: IPRATROPIUM-ALBUTEROL 3 ML NEB INHALATION SCH ×4 (08:18→20:23)
[2022-01-07 09:14] LABS: ALT 20 U/L (4-49); AST 30 U/L (17-59); African American GFR (CKD) >90 (>60 ml/min/1.73 sqM); Albumin 3.1 g/dL (3.5-5.0); Alkaline Phosphatase 103 U/L (38-126); Anion Gap 5 mmol/L; Blood Urea Nitrogen 5 mg/dL (9-20); Calcium 8.6 mg/dL (8.4-10.2); Carbon Dioxide 27 mmol/L (22-30); Chloride 94 mmol/L (98-107); Glucose 86 mg/dL (74-99); Non-African American GFR(CKD) >90 (>60 ml/min/1.73 sqM); Potassium 4.3 mmol/L (3.5-5.1); Sodium 126 mmol/L (137-145); Total Bilirubin 0.5 mg/dL (0.2-1.3); Total Protein 5.5 g/dL (6.3-8.2)
--- NOTE | 2022-01-07 09:18 | P.PN ---
Subjective Patient is seen in follow-up for hyponatremia. Sodium level corrected rapidly on 01/05/2022. Yesterday morning when I saw the patient for the first time, I started the patient on D5W which he received throughout the day and also gave him a dose of DDAVP. Sodium level did come down to 125 as of last night. Morning labs are pending. Patient did have a seizure last night and resolved spontaneously. CT of the brain was negative. Currently sitting up in chair. Awake and alert. Vital signs are stable. General: Awake. No acute distress. HEENT: Head exam is unremarkable. On nasal cannula. LUNGS: Breath sounds decreased. HEART: Rate and Rhythm are regular. ABDOMEN: Soft, no distention. EXTREMITITES: No edema. Objective - Vital Signs Vital signs: Vital Signs Temp 97.9 F 01/07/22 08:00 Pulse 75 01/07/22 09:00 Resp 16 01/07/22 09:00 BP 92/65 01/07/22 09:00 Pulse Ox 99 01/07/22 09:00 FiO2 96 01/02/22 16:00 Intake & Output 01/06/22 01/07/22 01/07/22 18:59 06:59 18:59 Intake Total 1500 750 100 Output Total 1240 700 400 Balance 260 50 -300 Weight 70.4 kg Intake: IV 200 Dextrose 5% in Water 1, 200 000 ml @ 100 mls/hr IV . Q10H ONE Rx#:[id number] Intake, IV Titration 1400 300 Amount Dextrose 5% in Water 1, 1400 300 000 ml @ 100 mls/hr IV . Q10H ONE Rx#:[id number] Oral 100 250 100 Output: Urine 1240 700 400 Other: # Voids 1 # Bowel Movements 1 - Labs CBC & Chem 7: 01/06/22 22:20 01/06/22 22:22 Labs: Abnormal Lab Results - Last 24 Hours (Table) 01/06/22 01/06/22 01/06/22 Range/Units 10:57 16:00 19:09 RBC (4.30-5.90) m/uL Hgb (13.0-17.5) gm/dL Hct (39.0-53.0) % Sodium 129 L 126 L 126 L (137-145) mmol/L Chloride (98-107) mmol/L Carbon Dioxide (22-30) mmol/L BUN (9-20) mg/dL Creatinine (0.66-1.25) mg/dL Glucose (74-99) mg/dL POC Glucose (mg/dL) (70-110) mg/dL Plasma Lactic Acid Terry (0.7-2.0) mmol/L Total Protein (6.3-8.2) g/dL Albumin (3.5-5.0) g/dL 01/06/22 01/06/22 01/06/22 Range/Units 22:03 22:14 22:20 RBC 3.85 L (4.30-5.90) m/uL Hgb 11.9 L (13.0-17.5) gm/dL Hct 37.6 L (39.0-53.0) % Sodium (137-145) mmol/L Chloride (98-107) mmol/L Carbon Dioxide (22-30) mmol/L BUN (9-20) mg/dL Creatinine (0.66-1.25) mg/dL Glucose (74-99) mg/dL POC Glucose (mg/dL) 229 H (70-110) mg/dL Plasma Lactic Acid Terry 12.4 H* (0.7-2.0) mmol/L Total Protein (6.3-8.2) g/dL Albumin (3.5-5.0) g/dL 01/06/22 Range/Units 22:22 RBC (4.30-5.90) m/uL Hgb (13.0-17.5) gm/dL Hct (39.0-53.0) % Sodium 125 L (137-145) mmol/L Chloride 94 L (98-107) mmol/L Carbon Dioxide 15 L (22-30) mmol/L BUN 7 L (9-20) mg/dL Creatinine 0.50 L (0.66-1.25) mg/dL Glucose 180 H (74-99) mg/dL POC Glucose (mg/dL) (70-110) mg/dL Plasma Lactic Acid Terry (0.7-2.0) mmol/L Total Protein 6.1 L (6.3-8.2) g/dL Albumin 3.4 L (3.5-5.0) g/dL Assessment and Plan Plan: Assessment: 1. Hyponatremia. Euvolemic. Concern for underlying SIADH from possible malignancy. Urine sodium 62 and urine osmolality 414. TSH normal. Cortisol normal. Sodium level corrected rapidly on 01/05/2022 from 3% saline, Samsca and salt tabs. The rapid correction was reversed with D5W and DDAVP given 01/06/2022. Sodium level 126 this morning. Sodium level up by 11 mmol/L over the last 48 hours which is appropriate. 2. History of rheumatoid arthritis. 3. Right lung lesion concerning for malignancy. PET scan and biopsy be considered. 4. Seizure 01/06/2022. CT of the brain negative. No episodes since. Plan: Currently off IV fluids. MRI and EEG pending. Encouraged oral intake. Repeat labs in the morning.
[2022-01-07] MEDS: levETIRAcetam 500 MG TAB PO SCH ×2 (09:32→20:57)
[2022-01-07] MEDS ORDERED: LORazepam 1 MG/0.5 ML VIAL IV PRN (09:37)
--- NOTE | 2022-01-07 09:39 | P.CNNES ---
History of Present Illness Consult date: 01/07/22 Requesting physician: Roman Abrams Reason for Consult: seizure History of Present Illness: (A 76-year-old gentleman with history of tobacco use who was transferred to our facility because of severe hyponatremia. Neurology is consulted for seizure. Some of the history is obtained from the patient's was at bedside. According to the patient for the last 2 days the patient has been having some tremor of the right upper extremity and twitching of the muscles of the right upper jerking of the right upper extremity without any loss of consciousness for the last 2-3 days but then yesterday he started having constant jerking of the right upper extremity without any loss of consciousness throughout the day yesterday then improved in the afternoon and then again happening again and later in the late afternoon and evening and by 10 PM patient had the eye rolling back, tonic posture of the bilateral upper nonresponsive lasting for 2 minutes then was post ictal for prolonged period of time of at least possibly 10 minutes. Patient denies any foaming around the mouth, no tongue bite, urine no urinary or bowel incontinence. Patient does not have any history of seizure. As stated earlier the patient has severe hyponatremia on presentation to our facility of 107 and has improved to 126. At one point the patient was getting 3% hypertonic. Patient feels he is doing drastically better today compared to yesterday. Denies any further seizure. It is reported the patient has right upper lobe opacity suspicious for bronchogenic carcinoma however is not confirmed by tissue diagnosis and is seems the radiologist does not feel lesion is malignant unless the PET scan is positive then would consider CT guided needle biopsy. And his severe hyponatremia was felt possible SIDH. The patient does a smoke significant the tobacco use of one and a half pack per day. Rarely socially drinks alcohol. Denies any illicit drug use. Some of the workup during his hospital visit consisted of: Of note patient had a CT of the head earlier in the afternoon yesterday which is reported as no acute intracranial hemorrhage or midline shift. There is a mild diffuse age-related cerebral atrophy and chronic small vessel ischemic changes noted. Then the patient had repeated that CT of the head the yesterday towards the evening because a seizure episode and it's reported as cerebral atrophy. No acute intracranial abnormality. No change. Initial plasma like acid venous 12.4 and repeat is 1.1 Calcium is a most recent is 8.6, magnesium is 2.1, phosphorus 3.0. TSH is 1.280 Review of Systems Review of system: The 12 point system was reviewed and apparent positive and negative per HPI. Past Medical History Past Medical History: Rheumatoid Arthritis (RA) History of Any Multi-Drug Resistant Organisms: None Reported Past Surgical History: No Surgical Hx Reported Past Psychological History: No Psychological Hx Reported Smoking Status: Never smoker Past Alcohol Use History: None Reported Past Drug Use History: None Reported - Past Family History Mother Family Medical History: Unable to Obtain Father Family Medical History: Unable to Obtain Medications and Allergies Home Medications Medication Instructions Recorded Confirmed Type Ibuprofen [Motrin Ib] 200 mg PO Q6H PRN 01/02/22 01/02/22 History Leflunomide [Arava] 20 mg PO DAILY 01/02/22 01/02/22 History azaTHIOprine [Imuran] 50 mg PO DAILY 01/02/22 01/02/22 History Allergies Allergy/AdvReac Type Severity Reaction Status Date / Time No Known Allergies Allergy Verified 01/02/22 12:46 Physical Examination - Vital Signs Vital Signs: Vital Signs Temp Pulse Resp BP Pulse Ox 01/07/22 09:00 75 16 92/65 99 01/07/22 08:00 97.9 F 81 16 103/57 97 01/07/22 07:00 79 15 119/58 01/07/22 06:00 70 14 100/70 98 01/07/22 05:00 78 13 73/54 98 01/07/22 04:00 76 12 120/78 100 01/07/22 03:00 86 14 01/07/22 02:00 80 12 92/65 01/07/22 01:00 80 7 L 92/65 97 01/07/22 00:02 85 11 L 88/54 01/07/22 00:00 86 17 88/54 01/06/22 23:00 95 16 93/57 95 01/06/22 22:00 112 H 13 137/80 97 01/06/22 21:00 75 22 104/51 98 01/06/22 20:59 73 01/06/22 20:38 75 01/06/22 20:00 97.6 F 76 21 105/59 97 01/06/22 19:00 83 15 106/61 95 01/06/22 18:00 84 21 112/59 91 L 01/06/22 17:00 93 14 98/85 90 L 01/06/22 16:37 85 01/06/22 16:27 85 01/06/22 16:00 98.7 F 85 21 111/82 98 01/06/22 15:00 88 16 110/63 92 L 01/06/22 14:00 82 16 102/54 96 01/06/22 13:00 85 16 111/64 96 01/06/22 12:00 98.6 F 84 19 108/59 97 01/06/22 11:00 83 22 108/59 98 01/06/22 10:00 89 18 114/69 93 L Intake and Output 01/06/22 01/07/22 01/07/22 22:59 06:59 14:59 Intake Total 1050 450 100 Output Total 200 700 400 Balance 850 -250 -300 Intake: IV 200 Dextrose 5% in Water 1, 200 000 ml @ 100 mls/hr IV . Q10H ONE Rx#:[id number] Intake, IV Titration 1050 Amount Dextrose 5% in Water 1, 1050 000 ml @ 100 mls/hr IV . Q10H ONE Rx#:[id number] Oral 250 100 Output: Urine 200 700 400 Other: # Voids 1 1 # Bowel Movements 1 Weight 70.4 kg GENERAL: The patient is sitting in a recliner chair and is not in acute distress. CHEST: The heart rate is regular rate rhythm. No murmurs to auscultation. . LUNG: Clear to auscultation bilaterally no wheezing noted throughout. Not labored breathing. ABDOMEN/GI: Bowel sounds present in all 4 quadrants. No tenderness to palpation throughout. NEUROLOGICAL: Higher mental function: The patient is awake, alert, oriented to self, place and time. Patient is following commands. No aphasia and no neglect. Cranial nerves: The pupils are round, equal and reactive to light and accommodation. Visual painter are full to confrontation throughout. Extraocular movement is intact no nystagmus is noted. Facial sensation is normal to touch throughout. The facial strength is normal throughout. Hearing is normal bilaterally to hand rub. Tongue is midline and moved [id number] without any difficulty. No dysarthria is noted. Shoulder shrug is normal bilaterally. Motor: The strength is 5 over 5 throughout. Normal tone and bulk. Cerebellum: Normal finger to nose bilaterally. Sensation: Sensation is normal to touch throughout. Reflexes (right/left): 1+ throughout. Plantars are mute bilaterally. Results - Laboratory Findings CBC and BMP: 01/06/22 22:20 01/07/22 08:28 Abnormal Lab Findings: Abnormal Labs 01/02/22 01/02/22 01/02/22 02:54 02:54 04:30 RBC 3.79 L Hgb 11.9 L Hct 33.1 L Plt Count Lymphocytes # 0.6 L Sodium 107 L* Chloride 78 L Carbon Dioxide 20 L BUN 6 L Creatinine 0.36 L Glucose POC Glucose (mg/dL) Osmolality 222 L* Plasma Lactic Acid Terry Calcium 7.3 L Iron TIBC % Saturation Transferrin Ferritin Total Protein 5.4 L Albumin 2.9 L Procalcitonin Urine Ketones 2+ H 01/02/22 01/02/22 01/02/22 06:28 12:57 12:57 RBC Hgb Hct Plt Count Lymphocytes # Sodium 107 L* 109 L* Chloride Carbon Dioxide BUN Creatinine Glucose POC Glucose (mg/dL) Osmolality Plasma Lactic Acid Terry Calcium Iron TIBC % Saturation Transferrin Ferritin Total Protein Albumin Procalcitonin 0.22 H Urine Ketones 01/02/22 01/02/22 01/02/22 17:31 17:31 21:57 RBC Hgb Hct Plt Count Lymphocytes # Sodium 112 L* 114 L* Chloride Carbon Dioxide BUN Creatinine Glucose POC Glucose (mg/dL) Osmolality Plasma Lactic Acid Terry Calcium 7.2 L Iron TIBC % Saturation Transferrin Ferritin Total Protein Albumin Procalcitonin Urine Ketones 01/03/22 01/03/22 01/03/22 00:00 02:34 06:40 RBC 3.80 L Hgb 11.5 L Hct 33.6 L Plt Count Lymphocytes # Sodium 113 L* 114 L* Chloride 86 L Carbon Dioxide 21 L BUN 4 L Creatinine 0.36 L Glucose POC Glucose (mg/dL) Osmolality 243 L* Plasma Lactic Acid Terry Calcium 7.1 L Iron 26 L TIBC 210 L % Saturation 12.29 L Transferrin 150.0 L Ferritin 712.0 H Total Protein Albumin Procalcitonin Urine Ketones 01/03/22 01/03/22 01/03/22 06:40 10:16 14:27 RBC Hgb Hct Plt Count Lymphocytes # Sodium 115 L* 114 L* 114 L* Chloride 87 L Carbon Dioxide BUN 2 L Creatinine 0.37 L Glucose POC Glucose (mg/dL) Osmolality Plasma Lactic Acid Terry Calcium 7.3 L Iron TIBC % Saturation Transferrin Ferritin Total Protein Albumin Procalcitonin Urine Ketones 01/03/22 01/04/22 01/04/22 19:17 03:19 06:36 RBC 3.55 L Hgb 11.0 L Hct 32.2 L Plt Count 146 L Lymphocytes # 0.7 L Sodium 114 L* 114 L* Chloride Carbon Dioxide BUN Creatinine Glucose POC Glucose (mg/dL) Osmolality Plasma Lactic Acid Terry Calcium Iron TIBC % Saturation Transferrin Ferritin Total Protein Albumin Procalcitonin Urine Ketones 01/04/22 01/04/22 01/05/22 06:36 20:53 01:28 EST RBC Hgb Hct Plt Count Lymphocytes # Sodium 113 L* 115 L* 114 L* Chloride 85 L Carbon Dioxide BUN 3 L Creatinine 0.43 L Glucose POC Glucose (mg/dL) Osmolality Plasma Lactic Acid Terry Calcium 7.7 L Iron TIBC % Saturation Transferrin Ferritin Total Protein Albumin Procalcitonin Urine Ketones 01/05/22 01/05/22 01/05/22 06:21 06:21 10:07 RBC 3.67 L Hgb 11.3 L Hct 32.7 L Plt Count Lymphocytes # 0.7 L Sodium 115 L* 115 L* Chloride Carbon Dioxide BUN Creatinine Glucose POC Glucose (mg/dL) Osmolality Plasma Lactic Acid Terry Calcium Iron TIBC % Saturation Transferrin Ferritin Total Protein Albumin Procalcitonin Urine Ketones 01/05/22 01/05/22 01/05/22 14:14 17:26 21:37 RBC Hgb Hct Plt Count Lymphocytes # Sodium 116 L* 115 L* 126 L Chloride Carbon Dioxide BUN Creatinine Glucose POC Glucose (mg/dL) Osmolality Plasma Lactic Acid Terry Calcium Iron TIBC % Saturation Transferrin Ferritin Total Protein Albumin Procalcitonin Urine Ketones 01/06/22 01/06/22 01/06/22 01:34 05:41 10:57 RBC Hgb Hct Plt Count Lymphocytes # Sodium 129 L 130 L 129 L Chloride Carbon Dioxide BUN Creatinine Glucose POC Glucose (mg/dL) Osmolality Plasma Lactic Acid Terry Calcium Iron TIBC % Saturation Transferrin Ferritin Total Protein Albumin Procalcitonin Urine Ketones 01/06/22 01/06/22 01/06/22 16:00 19:09 22:03 RBC Hgb Hct Plt Count Lymphocytes # Sodium 126 L 126 L Chloride Carbon Dioxide BUN Creatinine Glucose POC Glucose (mg/dL) 229 H Osmolality Plasma Lactic Acid Terry Calcium Iron TIBC % Saturation Transferrin Ferritin Total Protein Albumin Procalcitonin Urine Ketones 01/06/22 01/06/22 01/06/22 22:14 22:20 22:22 RBC 3.85 L Hgb 11.9 L Hct 37.6 L Plt Count Lymphocytes # Sodium 125 L Chloride 94 L Carbon Dioxide 15 L BUN 7 L Creatinine 0.50 L Glucose 180 H POC Glucose (mg/dL) Osmolality Plasma Lactic Acid Terry 12.4 H* Calcium Iron TIBC % Saturation Transferrin Ferritin Total Protein 6.1 L Albumin 3.4 L Procalcitonin Urine Ketones 01/07/22 08:28 RBC Hgb Hct Plt Count Lymphocytes # Sodium 126 L Chloride 94 L Carbon Dioxide BUN 5 L Creatinine 0.48 L Glucose POC Glucose (mg/dL) Osmolality Plasma Lactic Acid Terry Calcium Iron TIBC % Saturation Transferrin Ferritin Total Protein 5.5 L Albumin 3.1 L Procalcitonin Urine Ketones Assessment and Plan Assessment: * New onset seizure. Rule out brain mets especially with lung mass suspicious for bronchogenic carcinoma. Possibly component of his tremor is provoked due to significant hyponatremia but yesterday's event of seizure seems less likely provoked due to hyponatremia since sodium was in 120's and improving. * Elevated Lactic acidosis is reactive due to above--resolved. * Severe hyponatremia and there is concern due to SIADH * Right upper lobe opacity suspicious for bronchogenic carcinoma but not confirmed by tissue diagnosis. * Tobacco use Plan: I started the patient on Keppra 500 mg every 12 hours since he's been having focal motor seizure of right upper without LOC then had GTC on 01/06/2022 during evening. I ordered MRI of the brain with and without An EEG is ordered and is pending Placed on seizure precautions seizure past Ordered Ativan 1 mg every 4 hours as needed for seizure Nephrology is on board and will defer correction of hyponatremia to them. The plan was discussed with the patient and his was at bedside. I also updated the nurse of the plan. Thank you for the consultation. Time with Patient: Greater than 30
--- NOTE | 2022-01-07 12:06 | MR ---
EXAMINATION TYPE: MR brain wo/w con DATE OF EXAM: 01/07/2022 COMPARISON: CT brain 01/06/2022 HISTORY: Seizure TECHNIQUE: Multiplanar, multisequence images of the brain and brainstem is performed without and with IV contras t, utilizing 7 mL intravenous Gadavist . FINDINGS: Motion artifact limits evaluation. There is diffusion restriction within the left frontal lobe meadows radiata adjacent to the left lateral ventricle series 303 image 152 which does demonstrate periphera l postcontrast enhancement and measures 7 x 8 x 6 mm. Additional area of abnormal postcontrast enhanc ement within the right frontal lobe angulo-white junction measuring 3 mm also noted on series 901 image 21. There is no extra-axial fluid collection. The ventricular system and cisternal spaces are jeremiah l in size and appearance. The brain volume is age appropriate. Midline structures demonstrate normal morphology. The craniocervical junction appears within normal limits. Post contrast images demonstrate no abnormal enhancement. The dural venous sinuses appear pa tent. The visualized sinuses are clear and the globes are intact. Communicated to Dr. Miky Hilton MD on 01/07/2022 11:[address] Armaan Kennedy IMPRESSION: 1. No evidence for acute/subacute CVA, 2. There are 2 enhancing lesions, the first in the right frontal lobe at the angulo-white matter junct ion and second in the left periventricular white matter. Given patient history of lung mass finding f avored represent metastatic disease.
--- NOTE | 2022-01-07 13:56 | P.PN ---
Subjective Progress Note Date: 01/07/22 Principal diagnosis: Acute hyponatremia possible SIADH 6-year-old male transferred from an outside hospital. The patient was found to be profoundly hyponatremic. Here, his sodium was 107. According to family members, he's not been doing well for weeks or so. His been having dehydration, secondary to nausea and vomiting. More recently, he's had loss of balance, confusion, and dizziness. The patient does have a history of rheumatoid arthritis, and chronic heavy tobacco use. The patient is currently on room air. The patient's getting 3% saline at 40 mL an hour. He has been seen by nephrology. Currently labs include a sodium 107, potassium 4.2, CVA, CO2 20, anion gap 9, BUN 6, creatinine 0.36. The patient's osmolarity is 222. TSH is normal. Glucose 88. White count is 6.7, hemoglobin 11.9, and platelet count 184,000. Chest x-ray shows a right upper lobe infiltrate. The patient is not really having any signs or symptoms of pneumonia. There is no fever, cough, phlegm production, or shortness of breath. Progress note dated 01/03/2022. 76-year-old male transferred from an outside hospital with hyponatremia. Chest x-ray suggested a infiltrate in the right upper lobe. I was concerned about SIADH. A CAT scan was ordered. Clinically, the patient stable. The patient's sodium is up to 115. It was previously 107. He's on room air. He is getting saline at 10 mL an hour. White count 5.5, hemoglobin 11.5, hematocrit 43.6, and platelet count 295,000. Sodium 115, potassium 4.1, chloride 87, CO2 22, BUN 2, creatinine 0.37. Computed tomography scan of the chest showed a soft tissue density within the posterior medial right upper lung field measuring 3.2 x 3.8 cm. A pleural-based nodule in the posterior lateral right upper lobe lung field measuring 2.1 x 1.3 cm, and lateral right lung nodules, at the same level, measuring 2 x 1.4 cm. Pleural effusions are small. There is no hilar or mediastinal adenopathy. Outpatient PET scan will need to be ordered. Progress note dated 01/05/2022. 76-year-old male transferred from an outside hospital with hyponatremia. Chest x-ray suggested an infiltrate in the right upper lobe, and I was concerned about SIADH, and a CAT scan showed potential lung neoplasm, in the right upper lobe. The patient is currently being treated for significant and severe hyponatremia, with a morning sodium of 115. The patient's on room air. He is getting 3% saline at 25 mL an hour. White count 7.5, hemoglobin 11.3, hematocrit 32.7, and platelet count normal. Reevaluated today on 01/06/22, patient seems to be doing well, is at bedside, and explained to the that the lesion in the right lung is thomas spicious for lung cancer, however this is yet to be confirmed. Recommended interventional radiology evaluation for possible CT-guided needle biopsy of the peripheral right lung lesion however the radiologist refers to have a PET scan and if it shows hypermetabolic activity he would definitely consider CT-guided needle biopsy. I also feel the same way that if the patient has a positive PET scan, medication bronchoscopy could be considered otherwise my recommendation at this point is to continue to correct his hyponatremia and discharge the patient home, follow up on outpatient basis with jerrell Stacy on outpatient basis again I'm strongly recommending a PET scan to be done on outpatient basis and decide based on the PET scan as the best approach for tissue diagnosis. The right upper lobe abnormality may not even be malignant, and may not show hypermetabolic uptake on the PET scan. At any rate to no reason to keep the patient in-house to make a definitive tissue diagnosis. Continue to address his hypernatremia for now. Reevaluated today on 01/07/2022, patient developed an episode of seizure last night, has recommended a stat CT of the head, his sodium at the time was 125. CT of the head was unremarkable. Patient was seen by neurology today, started the patient on Keppra. MRI is pending EEG is pending. Patient is doing well, he is back to normal, not in any distress, and his sodium is being addressed by nephrology on the case. Today's sodium is 125. is at bedside, and I updated the on his condition, and I explained to the that the patient could be discharged home once he is cleared by all the consultants and could follow-up on outpatient basis with Dr. Hilton. Patient will need a PET scan on outpatient basis and will determine on outpatient basis whether the patient needs a navigational bronchoscopy or CT-guided needle biopsy depending on the PET scan findings. Repeat sodium this p.m. was 126 Objective - Vital Signs Vital signs: Vital Signs Temp 97.8 F 01/07/22 12:00 Pulse 78 01/07/22 13:00 Resp 20 01/07/22 13:00 BP 135/65 01/07/22 13:00 Pulse Ox 97 01/07/22 13:00 FiO2 96 01/02/22 16:00 Intake & Output 01/06/22 01/07/22 01/07/22 18:59 06:59 18:59 Intake Total 1500 750 100 Output Total 1240 700 400 Balance 260 50 -300 Weight 70.4 kg Intake: IV 200 Dextrose 5% in Water 1, 200 000 ml @ 100 mls/hr IV . Q10H ONE Rx#:[id number] Intake, IV Titration 1400 300 Amount Dextrose 5% in Water 1, 1400 300 000 ml @ 100 mls/hr IV . Q10H ONE Rx#:[id number] Oral 100 250 100 Output: Urine 1240 700 400 Other: # Voids 1 # Bowel Movements 1 - Exam Physical Exam: Revealed 76-year-old white male in no distress Head: Atraumatic, normocephalic. HEENT:[Neck is supple.] [No neck masses.] [No thyromegaly.] [No JVD.] Chest: [Crackles at the bases no rhonchi and no wheezes Cardiac Exam: [Normal S1 and S2, no S3 gallop, no murmur.] Abdomen: [Soft, nontender, no megaly, no rebound, no guarding, normal bowel sounds.] Extremities: [No clubbing, no edema, no cyanosis.] Neurological Exam: [Alert and oriented 3 no focal deficits Psychiatric: Normal mood affect and normal mental status examination however at times seems to be confused. - Labs CBC & Chem 7: 01/06/22 22:20 01/07/22 08:28 Labs: Abnormal Lab Results - Last 24 Hours (Table) 01/06/22 01/06/22 01/06/22 Range/Units 16:00 19:09 22:03 RBC (4.30-5.90) m/uL Hgb (13.0-17.5) gm/dL Hct (39.0-53.0) % Sodium 126 L 126 L (137-145) mmol/L Chloride (98-107) mmol/L Carbon Dioxide (22-30) mmol/L BUN (9-20) mg/dL Creatinine (0.66-1.25) mg/dL Glucose (74-99) mg/dL POC Glucose (mg/dL) 229 H (70-110) mg/dL Plasma Lactic Acid Terry (0.7-2.0) mmol/L Total Protein (6.3-8.2) g/dL Albumin (3.5-5.0) g/dL 01/06/22 01/06/22 01/06/22 Range/Units 22:14 22:20 22:22 RBC 3.85 L (4.30-5.90) m/uL Hgb 11.9 L (13.0-17.5) gm/dL Hct 37.6 L (39.0-53.0) % Sodium 125 L (137-145) mmol/L Chloride 94 L (98-107) mmol/L Carbon Dioxide 15 L (22-30) mmol/L BUN 7 L (9-20) mg/dL Creatinine 0.50 L (0.66-1.25) mg/dL Glucose 180 H (74-99) mg/dL POC Glucose (mg/dL) (70-110) mg/dL Plasma Lactic Acid Terry 12.4 H* (0.7-2.0) mmol/L Total Protein 6.1 L (6.3-8.2) g/dL Albumin 3.4 L (3.5-5.0) g/dL 01/07/22 Range/Units 08:28 RBC (4.30-5.90) m/uL Hgb (13.0-17.5) gm/dL Hct (39.0-53.0) % Sodium 126 L (137-145) mmol/L Chloride 94 L (98-107) mmol/L Carbon Dioxide (22-30) mmol/L BUN 5 L (9-20) mg/dL Creatinine 0.48 L (0.66-1.25) mg/dL Glucose (74-99) mg/dL POC Glucose (mg/dL) (70-110) mg/dL Plasma Lactic Acid Terry (0.7-2.0) mmol/L Total Protein 5.5 L (6.3-8.2) g/dL Albumin 3.1 L (3.5-5.0) g/dL Assessment and Plan Assessment: Impression: Severe hyponatremia with euvolemic possible SIADH Right upper lobe opacity, suspicious for bronchogenic carcinoma however this is yet to be confirmed by tissue diagnosis, radiologist does not feel the lesion is malignant unless a PET scan is positive then he would consider CT-guided needle biopsy Chronic nausea and vomiting History of rheumatoid arthritis Tobacco dependence syndrome New-onset seizure, possible related to hyponatremia. Recommendation: Agree with neurology for placement on Keppra, further workup is pending Continue present supportive care measures Nephrology is addressing his hyponatremia Consider discharge planning once the patient is cleared by all the consultants Follow-up with Dr. Hilton in 2 weeks post discharge, and I will arrange for o utpatient PET scan. Discussed his condition with the at bedside. Time with Patient: Less than 30
--- NOTE | 2022-01-07 17:28 | P.PN ---
Progress Note - Text Progress Note Date: 01/07/22 Chief Complaint: Low-sodium This is a 76-year-old patient who is a long-standing smoker. Patient was sent from [facility] as sodium was found to be very low. 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 Sodium was 106. He was started on hypertonic saline given at the outside hospital and then subsequently transferred here. Patient has noticed that he's been dizzy and lightheaded. Has been having 1 week of nausea vomiting. Has been a bit off balance. Denies any fever and chills. Has a chronic cough. Little sputum if any. Patient started hypertonic saline and admitted to ICU. Patient admitted with severe hyponatremia, SIADH, lung mass, COPD 01/03/2022: Or fluid ICU. Sodium still running low. Getting sodium chloride tablet. Saline. Fluid restriction. Computed tomography scan has showed a lung mass. Bleed bronchoscopy at some point. Breathing better. Patient's son and visiting. Breathing better. Hypertonic saline was discontinued early hours a day. 01/04/2022: In the ICU. Sodium around 114. Tolerating diet. He received IV iron. Placed on hypertonic saline. at the bedside. Breathing better. 01/05/2022: ICU. Sodium 114. On hypertonic saline. Will add salt tablets. Fluid restriction. Cough. Drinks no sputum. Patient received Samsca. Add sodium chloride tablet. 01/06/2022: Or fluid ICU. On neck patient received hypertonic saline, Samsca. Sodium chloride tablets. Sodium 129 this morning. Seen by nephrology. Sodium chloride tablets discontinued. Patient is off hypertonic saline. Intervention radiology consulted for possible biopsy. If not then outpatient as discussed with Dr. Barrios. Discussed with the patient and at the bedside. Oral intake fair. Having muscle spasms. Baclofen added. 01/07/2022: ICU. Patient today had a MRI. 2 lesions found. Possibly metastat ic. Patient now felt to have focal seizures in the right arm. Started on Keppra. DC baclofen. Seen by neurology. Spoke to the patient and 2 sons at the bedside. For further workup as outpatient including biopsy. Active Medications Acetaminophen (Acetaminophen Tab 325 Mg Tab) 650 mg PO Q6HR PRN PRN Reason: Mild Pain or Fever > 100.5 Last Admin: 01/04/22 16:19 Dose: 650 mg Albuterol/Ipratropium (Ipratropium-Albuterol 3 Ml Neb) 3 ml INHALATION RT-QID [facility] Last Admin: 01/07/22 15:27 Dose: Not Given Azathioprine (Azathioprine 50 Mg Tab) 50 mg PO DAILY [facility] Last Admin: 01/07/22 08:11 Dose: 50 mg Budesonide (Budesonide 1 Mg/2 Ml Nebu) 1 mg INHALATION RT-BID [facility] Last Admin: 01/07/22 08:18 Dose: Not Given Enoxaparin Sodium (Enoxaparin 40 Mg/0.4 Ml Syringe) 40 mg SQ DAILY [facility] Last Admin: 01/07/22 08:11 Dose: 40 mg Leflunomide (Leflunomide 20 Mg Tab) 20 mg PO DAILY [facility] Last Admin: 01/07/22 08:12 Dose: 20 mg Levetiracetam (Levetiracetam 500 Mg Tab) 500 mg PO Q12HR [facility] Last Admin: 01/07/22 09:32 Dose: 500 mg Lorazepam (Lorazepam 1 Mg/0.5 Ml Vial) 1 mg IV Q4HR PRN PRN Reason: Seizures Miscellaneous Information (Potassium Replacement Protocol 1 Each Misc) 1 each MISCELLANE DAILY PRN; Protocol PRN Reason: Per Protocol Miscellaneous Information (Rx Info: Iv Contrast Was Given 1 Each Misc) 1 each MISCELLANE DAILY PRN PRN Reason: Per Protocol Stop: 01/08/22 09:36 Naloxone HCl (Naloxone 0.4 Mg/Ml 1 Ml Vial) 0.2 mg IV Q2M PRN PRN Reason: Opioid Reversal Nicotine (Nicotine 21mg/24hr Patch) 1 patch TRANSDERM DAILY [facility] Last Admin: 01/06/22 09:45 Dose: 1 patch Past medical history to include: Rheumatoid arthritis Social history: . Smokes about a pack and a half a day for close to 60's. No alcohol. Retired from [employer]. Physical examination: VITAL SIGNS: 97.6, 83, 20, 11 4 x 61, 97% room air GENERAL: Up in a chair, tired EYES: Pupils equal. Conjunctiva normal. HEENT: External appearance of nose and ears normal, oral cavity grossly normal. NECK: JVD not raised; masses not palpable. HEART: First and second heart sounds are normal; no edema. LUNGS: Respiratory rate normal; decreased breath sounds, ABDOMEN: Soft, nontender, liver spleen not palpable, no masses palpable. PSYCH: Alert and oriented x3; mood and affect tired MUSCULOSKELETAL:No Clubbing/cyanosis;muscles-grossly intact, evidence of arthritis INVESTIGATIONS, reviewed in the clinical context: MRI brain with and without contrast: 2 enhancing lesions first in the right frontal lobe at the angulo-white matter junction and second and left periventricular white matter. 01/07/2022: Sodium 126 potassium 4.3 crit 0.48 01/05/2022: Sodium 115 white count 7.5 hemoglobin 11.3 01/04/2022: Sodium [address] CT chest with contrast: Lung masses/nodules. Possible pulmonary fibrosis. 01/03/2022: WBC 5.5 hemoglobin 11.5 platelets 195 sodium 115 potassium 4.1 creatinine 0.37 iron 26 TIBC 210% saturation 12.2 transferring 150 ferritin 712 White count 6.7 hemoglobin 11.9 platelets 184 sodium once was 7 potassium 4.2 bicarbonate 20 creatinine 0.36 serum osmolality 222 albumin 2.9 UA ketones 2+ EKG tracing personally reviewed by me-normal sinus rhythm. Chest x-ray film personally reviewed by me-consolidation right upper lobe. Hyperinflation. Assessment and plan: -Severe hypoosmolar hyponatremia. Likely SIADH,: Better hypertonic saline stopped. Fluid restriction 1500 mL daily. Avoid free fluid. Salt tablets stopped -Focal seizures in the right arm felt to be from the 2 metastatic lesions noted on the MRI. Started on Keppra. -Lung mass strongly suspicious for malignancy. 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 Follow with pulmonary Dr. Hilton. Intervention radiology consult for possible biopsy -Chronic nicotine dependence, cigarettes smoking Nicotine patch -COPD in a current smoker Guerita Pulmicort -Chronic rheumatoid arthritis Qamar Araluda, -Normocytic anemia, likely from chronic disease and iron deficiency Give IV iron Keep on Keppra. Other medications to continue. Pulmonary pulmonary further workup as an outpatient. We'll finalize tomorrow after discussing with consultants.
--- NOTE | 2022-01-07 22:02 | EEG ---
ELECTROENCEPHALOGRAM REPORT DATE OF SERVICE: 01/07/2022. CLINICAL HISTORY: This is a 76-year-old gentleman with episode of witnessed seizure-like activity on 01/06/2022. The video EEG is obtained to evaluate for seizure epileptiform activity. RELEVANT MEDICATION: The patient is not on any antiepileptic drugs. EEG TYPE: A routine 21-channel EEG is performed with video using the 10/20 electrode placement system. DESCRIPTION: Wakefulness and drowsiness are obtained. During awake state, the posterior-dominant rhythm consists of low to moderate voltage of 10-11 hertz activity that is well modulated, well sustained. There is no physiological stage 2 sleep architecture seen. There is no focal slowing. Interictal and ictal is none. ACTIVATION PROCEDURE: Photic stimulation did not evoke a posterior driving response. There is no abnormality during the photic stimulation. Hyperventilation is not performed. CLINICAL INTERPRETATION: This is a normal routine EEG. There is no focal slowing, epileptiform discharge, or seizure on the EEG. Normal routine EEG does not exclude underlying epilepsy. Clinical correlation is recommended. MMXIANG / DORISN: [id number] /
[2022-01-08 07:29] LABS: African American GFR (CKD) >90 (>60 ml/min/1.73 sqM); Anion Gap 2 mmol/L; Blood Urea Nitrogen 12 mg/dL (9-20); Calcium 8.2 mg/dL (8.4-10.2); Carbon Dioxide 26 mmol/L (22-30); Chloride 97 mmol/L (98-107); Glucose 85 mg/dL (74-99); Magnesium 1.9 mg/dL (1.6-2.3); Non-African American GFR(CKD) >90 (>60 ml/min/1.73 sqM); Potassium 4.2 mmol/L (3.5-5.1); Sodium 125 mmol/L (137-145)
[2022-01-08] MEDS: BUDESONIDE 1 MG/2 ML NEBU INHALATION SCH (08:03)
[2022-01-08] MEDS: IPRATROPIUM-ALBUTEROL 3 ML NEB INHALATION SCH ×2 (08:03→11:14)
[2022-01-08 08:28] VITALS: TEMP 97.9
[2022-01-08] MEDS: ENOXAPARIN 40 MG/0.4 ML SYRINGE SQ SCH (08:32)
[2022-01-08] MEDS: NICOTINE 21MG/24HR PATCH TRANSDERM SCH (08:32)
[2022-01-08] MEDS: levETIRAcetam 500 MG TAB PO SCH (08:33)
[2022-01-08] MEDS: azaTHIOprine 50 MG TAB PO SCH (08:33)
[2022-01-08] MEDS: LEFLUNOMIDE 20 MG TAB PO SCH (08:33)
--- NOTE | 2022-01-08 08:48 | P.PN ---
Subjective Patient is seen in follow-up for hyponatremia. Sodium level stable at 125 today. Awake and alert. On nasal cannula. Oral intake fair. No vomiting or diarrhea. Blood pressure on the lower side. Vital signs are stable. General: Awake. No acute distress. HEENT: Head exam is unremarkable. On nasal cannula. LUNGS: Breath sounds decreased. HEART: Rate and Rhythm are regular. ABDOMEN: Soft, no distention. EXTREMITITES: No edema. Objective - Vital Signs Vital signs: Vital Signs Temp 97.9 F 01/08/22 08:00 Pulse 82 01/08/22 08:21 Resp 19 01/08/22 08:00 BP 94/55 01/08/22 08:00 Pulse Ox 90 L 01/08/22 08:14 FiO2 21 01/08/22 08:14 Intake & Output 01/07/22 01/08/22 01/08/22 18:59 06:59 18:59 Intake Total 340 450 125 Output Total 900 550 275 Balance -560 -100 -150 Weight 70.9 kg Intake: Oral 340 450 125 Output: Urine 900 550 275 Other: # Bowel Movements 1 1 - Labs CBC & Chem 7: 01/06/22 22:20 01/08/22 06:40 Labs: Abnormal Lab Results - Last 24 Hours (Table) 01/07/22 01/08/22 Range/Units 08:28 06:40 Sodium 126 L 125 L (137-145) mmol/L Chloride 94 L 97 L (98-107) mmol/L BUN 5 L (9-20) mg/dL Creatinine 0.48 L 0.47 L (0.66-1.25) mg/dL Osmolality 263 L (280-301) mosm/kg Calcium 8.2 L (8.4-10.2) mg/dL Total Protein 5.5 L (6.3-8.2) g/dL Albumin 3.1 L (3.5-5.0) g/dL Assessment and Plan Plan: Assessment: 1. Hyponatremia. Euvolemic. Concern for underlying SIADH from possible malignancy. Urine sodium 62 and urine osmolality 414. TSH normal. Cortisol normal. 2. History of rheumatoid arthritis. 3. Right lung lesion concerning for malignancy. PET scan and biopsy being considered. MRI of the brain also concerning for metastatic disease. 4. Seizure 01/06/2022. Concern for brain metastases. Plan: Currently off IV fluids. Encouraged oral intake. Add 1500 mL fluid restriction. Add sodium chloride tabs 1 g twice a day. Repeat labs in the morning.
[2022-01-08] MEDS ORDERED: SODIUM CHLORIDE TAB 1 GM TAB PO SCH (09:00)
[2022-01-08 09:21] VITALS: PULSE 76
[2022-01-08 10:05] VITALS: BP 97/53; RESP 16
--- NOTE | 2022-01-08 12:09 | P.PN ---
Subjective Progress Note Date: 01/08/22 The patient seen at bedside and according to the patient's as well as the nurse stated that no further seizure-like activity and his uncontrollable routine activity over right side has resolved after being on Keppra. Patient denies of any neurological deficit. The was updated about the patient having brain metastases and she wants the patient to be discharged home so she can get the PET scan and assess whether other cancers lesions is in his body so they can decide how to proceed. Objective - Vital Signs Vital signs: Vital Signs Temp 97.9 F 01/08/22 08:00 Pulse 76 01/08/22 10:00 Resp 16 01/08/22 10:00 BP 97/53 01/08/22 10:00 Pulse Ox 90 L 01/08/22 08:14 FiO2 21 01/08/22 08:14 Intake & Output 01/07/22 01/08/22 01/08/22 18:59 06:59 18:59 Intake Total 340 450 225 Output Total 900 550 275 Balance -560 -100 -50 Weight 70.9 kg Intake: Oral 340 450 225 Output: Urine 900 550 275 Other: # Bowel Movements 1 1 - Exam GENERAL: The patient is sitting in a recliner chair and is not in acute distress. NEUROLOGICAL: Higher mental function: The patient is awake, alert, oriented to self, place and time. Patient is following commands. No aphasia and no neglect. Cranial nerves: The pupils are round, equal and reactive to light and accommodation. Visual painter are full to confrontation throughout. Extraocular movement is intact no nystagmus is noted. Facial sensation is normal to touch throughout. The facial strength is normal throughout. Hearing is normal bilaterally to hand rub. Tongue is midline and moved [id number] without any difficulty. No dysarthria is noted. Shoulder shrug is normal bilaterally. Motor: The strength is 5 over 5 throughout. Normal tone and bulk. Cerebellum: Normal finger to nose bilaterally. Sensation: Sensation is normal to touch throughout. Reflexes (right/left): 1+ throughout. Plantars are mute bilaterally. Some of the workup during his hospital visit consisted of: CT of the head earlier in the afternoon yesterday which is reported as no acute intracranial hemorrhage or midline shift. There is a mild diffuse age-related cerebral atrophy and chronic small vessel ischemic changes noted. Then the patient had repeated that CT of the head the yesterday towards the evening because a seizure episode and it's reported as cerebral atrophy. No acute intracranial abnormality. No change. MR the brain is reported as no evidence for acute or subacute CVA. There are 2 enhancing lesion the first in the right frontal lobe at the angulo white matter junction and the second in the left periventricular white matter. Given the patient's history of lung mass favored represent metastatic disease. And the sizes are 3 mm and the other by 7 x 8 x 6 mm respectively. Routine EEG is abnormal. There is no focal slowing, performed discharges or seizure on the EEG. Calcium is a most recent is 8.6, magnesium is 2.1, phosphorus 3.0. TSH is 1.280 - Labs CBC & Chem 7: 01/06/22 22:20 01/08/22 06:40 Labs: Abnormal Lab Results - Last 24 Hours (Table) 01/08/22 Range/Units 06:40 Sodium 125 L (137-145) mmol/L Chloride 97 L (98-107) mmol/L Creatinine 0.47 L (0.66-1.25) mg/dL Osmolality 263 L (280-301) mosm/kg Calcium 8.2 L (8.4-10.2) mg/dL Assessment and Plan Assessment: * New onset seizure. 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 It seems the primary source appears lung---seizure is controlled. * Elevated Lactic acidosis is reactive due to above--resolved. * Severe hyponatremia and there is concern due to SIADH * Right upper lobe opacity suspicious for bronchogenic carcinoma but not confirmed by tissue diagnosis. * Significant Tobacco use Plan: Continue Keppra 500 mg every 12 hours and his seizures are controlled. On seizure precautions On Ativan 1 mg every 4 hours as needed for seizure Nephrology is on board and will defer correction of hyponatremia to them. Patient is pending to have PET scan and he can have the past get as an outpatient. They do not want to pursue with the bronchoscopy but rather went to get the past get to assess if there is any other enhancing lesion and then they'll decide how to proceed after that. Recommend the patient to follow-up with a neurologist and neurosurgeon as an outpatient. The plan was discussed with the patient and his was at bedside. I updated the primary team. Otherwise no additional work-up from neurological perspective. Please notify neurology team if any further concerns. Time with Patient: Less than 30
--- NOTE | 2022-01-08 13:22 | P.PN ---
Subjective Progress Note Date: 01/08/22 Principal diagnosis: Acute hyponatremia possible SIADH 6-year-old male transferred from an outside hospital. The patient was found to be profoundly hyponatremic. Here, his sodium was 107. According to family members, he's not been doing well for weeks or so. His been having dehydration, secondary to nausea and vomiting. More recently, he's had loss of balance, confusion, and dizziness. The patient does have a history of rheumatoid arthritis, and chronic heavy tobacco use. The patient is currently on room air. The patient's getting 3% saline at 40 mL an hour. He has been seen by nephrology. Currently labs include a sodium 107, potassium 4.2, CVA, CO2 20, anion gap 9, BUN 6, creatinine 0.36. The patient's osmolarity is 222. TSH is normal. Glucose 88. White count is 6.7, hemoglobin 11.9, and platelet count 184,000. Chest x-ray shows a right upper lobe infiltrate. The patient is not really having any signs or symptoms of pneumonia. There is no fever, cough, phlegm production, or shortness of breath. Progress note dated 01/03/2022. 76-year-old male transferred from an outside hospital with hyponatremia. Chest x-ray suggested a infiltrate in the right upper lobe. I was concerned about SIADH. A CAT scan was ordered. Clinically, the patient stable. The patient's sodium is up to 115. It was previously 107. He's on room air. He is getting saline at 10 mL an hour. White count 5.5, hemoglobin 11.5, hematocrit 43.6, and platelet count 295,000. Sodium 115, potassium 4.1, chloride 87, CO2 22, BUN 2, creatinine 0.37. Computed tomography scan of the chest showed a soft tissue density within the posterior medial right upper lung field measuring 3.2 x 3.8 cm. A pleural-based nodule in the posterior lateral right upper lobe lung field measuring 2.1 x 1.3 cm, and lateral right lung nodules, at the same level, measuring 2 x 1.4 cm. Pleural effusions are small. There is no hilar or mediastinal adenopathy. Outpatient PET scan will need to be ordered. Progress note dated 01/05/2022. 76-year-old male transferred from an outside hospital with hyponatremia. Chest x-ray suggested an infiltrate in the right upper lobe, and I was concerned about SIADH, and a CAT scan showed potential lung neoplasm, in the right upper lobe. The patient is currently being treated for significant and severe hyponatremia, with a morning sodium of 115. The patient's on room air. He is getting 3% saline at 25 mL an hour. White count 7.5, hemoglobin 11.3, hematocrit 32.7, and platelet count normal. Reevaluated today on 01/06/22, patient seems to be doing well, is at bedside, and explained to the that the lesion in the right lung is thomas spicious for lung cancer, however this is yet to be confirmed. Recommended interventional radiology evaluation for possible CT-guided needle biopsy of the peripheral right lung lesion however the radiologist refers to have a PET scan and if it shows hypermetabolic activity he would definitely consider CT-guided needle biopsy. I also feel the same way that if the patient has a positive PET scan, medication bronchoscopy could be considered otherwise my recommendation at this point is to continue to correct his hyponatremia and discharge the patient home, follow up on outpatient basis with jerrell Stacy on outpatient basis again I'm strongly recommending a PET scan to be done on outpatient basis and decide based on the PET scan as the best approach for tissue diagnosis. The right upper lobe abnormality may not even be malignant, and may not show hypermetabolic uptake on the PET scan. At any rate to no reason to keep the patient in-house to make a definitive tissue diagnosis. Continue to address his hypernatremia for now. Reevaluated today on 01/07/2022, patient developed an episode of seizure last night, has recommended a stat CT of the head, his sodium at the time was 125. CT of the head was unremarkable. Patient was seen by neurology today, started the patient on Keppra. MRI is pending EEG is pending. Patient is doing well, he is back to normal, not in any distress, and his sodium is being addressed by nephrology on the case. Today's sodium is 125. is at bedside, and I updated the on his condition, and I explained to the that the patient could be discharged home once he is cleared by all the consultants and could follow-up on outpatient basis with Dr. Hilton. Patient will need a PET scan on outpatient basis and will determine on outpatient basis whether the patient needs a navigational bronchoscopy or CT-guided needle biopsy depending on the PET scan findings. Repeat sodium this p.m. was 126 Reevaluated today on 01/08/2022, patient is basically about the same. MRI of the brain is suggestive of metastatic lesions in the brain. Today I discussed his condition with the at bedside, and offered to at least attempt navigational bronchoscopy for tissue diagnosis, however the declined and she withdraws her have this done on outpatient basis. Patient and both want to go home. Hence I will clear the patient for discharge and he should have follow-up with Dr. hilton on outpatient basis in the next 2 weeks. Patient should have a PET scan should possibly have either a CT-guided needle biopsy of his right upper lobe lesion or at least a navigational bronchoscopy. In the meantime he is to be kept on sodium tablets as recommended by nephrology and on Keppra as recommended by neurology. 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 HEENT:[Neck is supple.] [No neck masses.] [No thyromegaly.] [No JVD.] Chest: [Crackles at the bases no rhonchi and no wheezes Cardiac Exam: [Normal S1 and S2, no S3 gallop, no murmur.] Abdomen: [Soft, nontender, no megaly, no rebound, no guarding, normal bowel sounds.] Extremities: [No clubbing, no edema, no cyanosis.] Neurological Exam: [Alert and oriented 3 no focal deficits Psychiatric: Normal mood affect and normal mental status examination however at times seems to be confused. 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 Based on abnormal MRI findings Chronic nausea and vomiting History of rheumatoid arthritis Tobacco dependence syndrome New-onset seizure, possible related to hyponatremia. Recommendation: declined navigational bronchoscopy during this admission Will clear the patient for discharge and outpatient follow-up if cleared by other consultants Nephrology is addressing his hyponatremia patient will go home on sodium tablets. Follow-up with Dr. Hilton in 2 weeks post discharge patient should have PET scan on outpatient, Discussed his condition with the at bedside. Time with Patient: Less than 30
--- NOTE | 2022-01-08 17:08 | P.DS ---
Providers Date of admission: 01/02/22 03:58 Expected date of discharge: 01/08/22 Attending physician: Harrison Jain Consults: 01/02/22 03:58 Consult Physician Routine Consulting Provider: Pat Perez Consult Reason/Comments: Hyponatremia Do you want consulting provider notified?: Already Contacted Consult Physician Routine Consulting Provider: Constance Woo Consult Reason/Comments: Hyponatremia Do you want consulting provider notified?: Yes 01/06/22 22:11 Consult Physician Stat Consulting Provider: Miky Hilton Consult Reason/Comments: seizure Do you want consulting provider notified?: Already Contacted Primary care physician: Stated None Hospital Course: Chief Complaint: Low-sodium This is a 76-year-old patient who is a long-standing smoker. Patient was sent from [facility] as sodium was found to be very low. 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 Sodium was 106. He was started on hypertonic saline given at the outside hospital and then subsequently transferred here. Patient has noticed that he's been dizzy and lightheaded. Has been having 1 week of nausea vomiting. Has been a bit off balance. Denies any fever and chills. Has a chronic cough. Little sputum if any. Patient started hypertonic saline and admitted to ICU. Patient admitted with severe hyponatremia, SIADH, lung mass, COPD 01/03/2022: Or fluid ICU. Sodium still running low. Getting sodium chloride tablet. Saline. Fluid restriction. Computed tomography scan has showed a lung mass. Bleed bronchoscopy at some point. Breathing better. Patient's son and visiting. Breathing better. Hypertonic saline was discontinued early hours a day. 01/04/2022: In the ICU. Sodium around 114. Tolerating diet. He received IV iron. Placed on hypertonic saline. at the bedside. Breathing better. 01/05/2022: ICU. Sodium 114. On hypertonic saline. Will add salt tablets. Fluid restriction. Cough. Drinks no sputum. Patient received Samsca. Add sodium chloride tablet. 01/06/2022: Or fluid ICU. On neck patient received hypertonic saline, Samsca. Sodium chloride tablets. Sodium 129 this morning. Seen by nephrology. Sodium chloride tablets discontinued. Patient is off hypertonic saline. Intervention radiology consulted for possible biopsy. If not then outpatient as discussed with Dr. Barrios. Discussed with the patient and at the bedside. Oral intake fair. Having muscle spasms. Baclofen added. 01/07/2022: ICU. Patient today had a MRI. 2 lesions found. Possibly metastatic. Patient now felt to have focal seizures in the right arm. Started on Keppra. DC baclofen. Seen by neurology. Spoke to the patient and 2 sons at the bedside. For further workup as outpatient including biopsy. 01/08/2022: Discussed with the patient and . He'll be discharged home today. Outpatient follow-up with Dr. Hilton for lung mass with either navigational bronchoscopy or needle biopsy of the right upper lobe. Also outpatient PET scan. All being coordinated by pulmonary.. Discussed with neurology patient to continue with Keppra. No further focal seizure activity. Fluid restriction to continue. Discussion and discharge planning more than 35 minutes Past medical history to include: Rheumatoid arthritis Social history: . Smokes about a pack and a half a day for close to 60's. No alcohol. Retired from [employer]. Physical examination: VITAL SIGNS: 97.9, 80, 19, 94 x 55, 98% room air GENERAL: Reclining in bed, awake, comfortable EYES: Pupils equal. Conjunctiva normal. HEENT: External appearance of nose and ears normal, oral cavity grossly normal. NECK: JVD not raised; masses not palpable. HEART: First and second heart sounds are normal; no edema. LUNGS: Respiratory rate normal; decreased breath sounds, ABDOMEN: Soft, nontender, liver spleen not palpable, no masses palpable. PSYCH: Alert and oriented x3; mood and affect tired MUSCULOSKELETAL:No Clubbing/cyanosis;muscles-grossly intact, evidence of arthritis INVESTIGATIONS, reviewed in the clinical context: MRI brain with and without contrast: 2 enhancing lesions first in the right frontal lobe at the angulo-white matter junction and second and left periventricular white matter. 01/07/2022: Sodium 126 potassium 4.3 crit 0.48 01/05/2022: Sodium 115 white count 7.5 hemoglobin 11.3 01/04/2022: Sodium 114 CT chest with contrast: Lung masses/nodules. Possible pulmonary fibrosis. 01/03/2022: WBC 5.5 hemoglobin 11.5 platelets 195 sodium 115 potassium 4.1 creatinine 0.37 iron 26 TIBC 210% saturation 12.2 transferring 150 ferritin 712 White count 6.7 hemoglobin 11.9 platelets 184 sodium once was 7 potassium 4.2 bicarbonate 20 creatinine 0.36 serum osmolality 222 albumin 2.9 UA ketones 2+ EKG tracing personally reviewed by me-normal sinus rhythm. Chest x-ray film personally reviewed by me-consolidation right upper lobe. Hyperinflation. Assessment and plan: -Severe hypoosmolar hyponatremia. Likely SIADH,: Better hypertonic saline stopped. Fluid restriction 1500 mL daily. Avoid free fluid. Salt tablets upon discharge -Focal seizures in the right arm felt to be from the 2 metastatic lesions noted on the MRI. Controlled with Keppra. -Lung mass strongly suspicious for malignancy. 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 Follow with pulmonary Dr. Hilton. He will coordinate outpatient PET scan/tissue biopsy -Chronic nicotine dependence, cigarettes smoking Nicotine patch -COPD in a current smoker Symbicort, albuterol when necessary -Chronic rheumatoid arthritis Imuran, Arava, -Normocytic anemia, likely from chronic disease and iron deficiency Give IV iron Disposition: Home Patient Condition at Discharge: Stable Plan - Discharge Summary Discharge Rx Participant: Yes New Discharge Prescriptions: New Albuterol Sulfate [Albuterol Sulfate Hfa] 1 puff PO Q4-6H #8.5 gm levETIRAcetam [Keppra] 500 mg PO Q12HR #60 tab Sodium Chloride Tab 1 gm PO BID #90 tab Budesonide/Formoterol Fumarate [Symbicort 160-4.5 Mcg Inhaler] 1 puff INHALATION BID #10.2 gm Nicotine 21Mg/24Hr Patch [Habitrol] 1 patch TRANSDERM DAILY #30 patch Continue Leflunomide [Arava] 20 mg PO DAILY Ibuprofen [Motrin Ib] 200 mg PO Q6H PRN PRN Reason: Pain Or Fever > 100.5 azaTHIOprine [Imuran] 50 mg PO DAILY Discharge Medication List Ibuprofen [Motrin Ib] 200 mg PO Q6H PRN 01/02/22 [History] Leflunomide [Arava] 20 mg PO DAILY 01/02/22 [History] azaTHIOprine [Imuran] 50 mg PO DAILY 01/02/22 [History] Albuterol Sulfate [Albuterol Sulfate Hfa] 1 puff PO Q4-6H #8.5 gm 01/08/22 [Rx] Budesonide/Formoterol Fumarate [Symbicort 160-4.5 Mcg Inhaler] 1 puff INHALATION BID #10.2 gm 01/08/22 [Rx] Nicotine 21Mg/24Hr Patch [Habitrol] 1 patch TRANSDERM DAILY #30 patch 01/08/22 [Rx] Sodium Chloride Tab 1 gm PO BID #90 tab 01/08/22 [Rx] levETIRAcetam [Keppra] 500 mg PO Q12HR #60 tab 01/08/22 [Rx] Follow up Appointment(s)/Referral(s): Milan Lieberman MD [REFERRING] - 01/09/22 10:30 am Armaan Hilton DO [Doctor of Osteopathic Medicine] - 01/20/22 8:30 am Patient Instructions/Handouts: Seizure/Epilepsy Discharge Instructions & Follow-Up Activity/Diet/Wound Care/Special Instructions: fluid restriction 1500 cc/day Discharge Disposition: HOME SELF-CARE
== END 2022-01-08 12:02 | disposition home or self-care (01) | DRG 181 ==
LOC: EC 02:36 → 2SICU 03:58
PROVIDERS: ADMIT Hospitalist; ATTEND Hospitalist
DX: C34.11 Malignant neoplasm of upper lobe, right bronchus or lung (principal); C79.31 Secondary malignant neoplasm of brain; E22.2 Syndrome of inappropriate secretion of antidiuretic hormone; E87.20 Acidosis, unspecified; G40.89 Other seizures; D63.8 Anemia in other chronic diseases classified elsewhere; J44.9 Chronic obstructive pulmonary disease, unspecified; M06.9 Rheumatoid arthritis, unspecified; D50.9 Iron deficiency anemia, unspecified; G31.9 Degenerative disease of nervous system, unspecified; E86.0 Dehydration; J84.10 Pulmonary fibrosis, unspecified; R91.1 Solitary pulmonary nodule; F17.210 Nicotine dependence, cigarettes, uncomplicated; M62.838 Other muscle spasm; Z79.624 Long term (current) use of inhibitors of nucleotide synthesis; Z79.899 Other long term (current) drug therapy; Z28.310 Unvaccinated for COVID-19
CPT/HCPCS: 36415; 70450; 70553; 71045; 71260; 80048; 80053; 81003; 82150; 82310; 82533; 82728; 83540; 83550; 83605; 83690; 83735; 83930; 83935; 84100; 84145; 84295; 84300; 84443; 85025; 85027; 93005; 94640; 95819; 96360; 96361; 99291

== ENCOUNTER → 2022-01-17 | Outpatient (CLI) | payer MEDICARE ==
--- NOTE | 2022-01-20 20:14 | PE ---
EXAMINATION TYPE: PET CT fusion skull to thigh DATE OF EXAM: 01/17/2022 CLINICAL INDICATION:Male, 76 years old with history of R91.8 OTHER NONSPECIFIC ABNORMAL FINDING OF MIKE NG F; TECHNIQUE: Following the intravenous administration of 11.7 mCi of F-18 FDG, whole body images are performed from the skull base to the midthigh. Images are reviewed on the computer in the coronal, a xial, and sagittal planes. Reconstructed rotating images are created on independent workstation and reviewed on the computer. A non-contrast CT is performed in conjunction with the PET scan. Glucose level 88 mg/dL COMPARISON: CT 01/02/2022, PET/CT None, FINDINGS: Mediastinal SUV mean is 1.4. Hepatic parenchyma SUV mean is 1.7. SKULL BASE AND NECK: No suspicious FDG activity. CHEST, MEDIASTINUM, AND HILAR REGION: Consolidation changes in the superior segment of the right lower lobe measuring 3.8 x 3.1 cm Max SUV 4.8 then more anteriorly in the lower aspect of the right upper lobe max SUV 5.9. There is large medi astinal lymph nodes without increased FDG activity includes right low paratracheal measuring 15 mm Ma x SUV 2.5. There is thickening of the interlobular septa throughout the lungs predominantly in the re gions around areas of consolidation changes. ABDOMEN AND PELVIS: There are areas in the liver there are more focal with increased FDG activity max SUV in the right hepatic. There is at least 3 of these areas max SUV 4.5 of the three areas. OSSEOUS STRUCTURES: FDG activity within the osseous structures, examples include: * Medial aspect of the right clavicle max SUV 3.0. * Left distal humerus max SUV 4.5. * C7 with max SUV 3.4. * T6 Max SUV 5.3. * T9 max SUV 3.1. * T10 max SUV 3.2 L1 Max SUV 3.5. * L4 max SUV 4.8 right sacrum max SUV 4.0. * Right iliac crest axis SUV 3.9. * Left iliac crest max SUV 3.0. * Right superior acetabulum max SUV 2.5. * Left pubic symphysis max SUV 4.4. These lesions do not have a CT imaging correlate. OTHER CT: Atherosclerosis of the arterial vasculature including the carotid bifurcations and coronary arteries the prostate gland is enlarged measuring up to 4.5 cm in transverse dimension. IMPRESSION: 1. Masslike consolidation changes within the lungs with areas of abnormal uptake within liver concer stewart for malignancy with metastatic disease. Given noncontrast technique the liver lesions are not we ll delineated. Consideration for MRI with IV contrast should be considered. 2. Scattered areas within the osseous structures which demonstrate mild increased radiotracer activi ty without correlate on CT. Further evaluation with nuclear medicine bone scans should be considered.
== END | disposition home or self-care (01) ==
LOC: RADPETMAIN 13:53
PROVIDERS: ATTEND Nurse Practitioner Family
DX: R91.8 Other nonspecific abnormal finding of lung field (principal); G93.89 Other specified disorders of brain
CPT/HCPCS: 78815; A9552